=== PATIENT | female | born 1980 | race Caucasian/White ===

== ENCOUNTER 2023-05-19 08:22 | Outpatient (AMB) | payer OTHER, SELFPAY ==
[2023-05-19 08:47] VITALS: BP 120/82; PULSE 85; O2SAT 98; BMI 43.4
--- NOTE | 2023-05-19 08:47 | MHC.PC.OV ---
Vital Signs 05/19/23 08:47 Height 5 ft 3 in Weight 245 lb 2 oz BMI 43.4 BP 120/82 Blood Pressure Location Lt brachial Position Sitting Pulse 85 Pulse Source Pulse Oximeter Pulse Oximetry (%) 98 Oxygen Delivery Method Room Air Intake Visit Reasons: Increased Parathyroid Intake Note: Py is here for parathyroid F/U. Hyperbaric Tech Required: No Accompanied by: Self / Same As Patient Allergies acetaminophen [From Percocet] Allergy (Unknown, Verified 05/19/23 09:14) vomitting amoxicillin Allergy (Unknown, Verified 05/19/23 09:14) hives hydrocodone [From Vicodin] Allergy (Unknown, Verified 05/19/23 09:14) hives Penicillins Allergy (Unknown, Verified 05/19/23 09:14) hives gemfibrozil Adverse Reaction (Intermediate, Verified 05/19/23 09:25) Palpitations oxycodone Adverse Reaction (Unknown, Verified 05/19/23 09:14) Vomiting Medication List - Last Reconciled 05/19/23 by Louis Eller PA-C diclofenac sodium 50 mg PO TID PRN folic acid 1 mg PO DAILY leflunomide 20 mg PO DAILY lisinopril 10 mg PO DAILY 90 days omeprazole 20 mg PO QAM sertraline 50 mg PO DAILY Tobacco use date assessed: 05/19/23 Dental Screening Dental Screen Date: 05/19/23 Did you have a dental visit in the last 12 months?: No Did you have a dental problem in the last 6 months where you did not have access to dental care?: No Was dental information given to patient?: Patient has dentist HPI Increased Parathyroid HPI Details Patient is a 42-year-old female here today for follow-up visit. Patient has not been seen quite a while here the PCP office. Patient has a past medical history significant for hypertension, obesity, rheumatoid arthritis, anxiety. Recently found to have recurrent episodes of nephrolithiasis by her urologist, noted to have elevated parathyroid hormone at 85. Advised to have PCP refer her to endocrinology due to her elevated parathyroid. .. Concern--> reports having left-sided sciatic pain last several months worse with sitting or standing for long periods of time. She is willing to do physical therapy and get x-rays left hip in lumbar spine. .. Looking for new Hyperlipidemia: Has tried gemfibrozil in the past though had side effects of palpitations and discontinued this medication. Continue to work on lifestyle modifications. .. Rheumatoid arthritis: Has lost follow-up with her with her ingot buggy operator as they have left practice. Is able to manage her pain with NSAID as needed.. She will be looking for a new ingot buggy operator in near future. .. Hypertension: Blood pressure acceptable today in office. Continues on lisinopril 10 mg with good effect on her blood pressure. [facility] Medical History (Updated 05/20/23 @ 07:29 by Louis Eller PA-C) COVID-19 virus infection GERD without esophagitis Panic disorder Surgical History H/O right knee surgery History of carpal tunnel release History of section History of extraction of renal calculus History of laparoscopy History of surgery History of tonsillectomy Family History Father Diabetes Sleep apnea Pulmonary fibrosis Mother Diabetes Obesity Osteoarthritis Hypercholesteremia Social History Housing: House Alcohol intake: current Alcohol intake frequency: holidays/special occasions only Alcohol type: beer, wine and hard liquor Patient Tobacco Use Status: Never used Tobacco e-Cigarette/Vaping Use: Never Used service: No Current occupational status: employed 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 1. Little interest or pleasure in doing things: not at all 2. Feeling down, depressed, or hopeless: not at all 3. Trouble falling or staying asleep, or sleeping too much: not at all 4. Feeling tired or having little energy: not at all 5. Poor appetite or overeating: not at all 6. Feeling bad about yourself - or that you are a failure or have let yourself or your family down: not at all 7. Trouble concentrating on things, such as reading the newspaper or watching television: not at all 8. Moving or speaking so slowly that other people could have noticed. Or the opposite - being so fidgety or restless that you have been moving around a lot more than usual: not at all 9. Thoughts that you would be better off or of hurting yourself in some way: not at all Total score: 0 Depression Screening Interpretation: Negative 13479 - PHQ-9 Billing: Yes Source: Developed by Drs. Parker Moran, Olive Fiore, Carmelo Simmons and colleagues, with an educational ashley from [employer]. Thrive Questionnaire Date Thrive assessed: 05/19/23 I am a: Patient What is your living situation today?: I have a steady place to live Within the past 12 months, did the food you bought not last and you didn't have the money to get more?: Never true Within the past 12 months, did you worry whether your food would run out before you got money to buy more?: Never true Do you have trouble paying for medicines?: No Do you have trouble getting transportation to medical appointments?: No Do you have trouble paying your heating and electricity bill?: No Do you have trouble taking care of your child, family member or friend?: No Do you have trouble with day-to-day activities such as bathing, preparing meals, shopping, managing finances, etc.?: No Are you currently unemployed and looking for a job?: No Are you interested in more education?: No Currently or been in a relationship where the following occur: no concerns reported AUDIT C Alcohol Use Questionnaire (AUDIT-C) 1. How often do you have a drink containing alcohol?: Monthly or less 2. How many drinks containing alcohol do you have on a typical day when you are drinking?: 1 or 2 3. How often do you have six or more drinks on one occasion?: Never Total Score: 1 PATY-7 AMB Questionnaire PATY-7 Date PATY - 7 assessed: 05/19/23 Feeling nervous, anxious, or on edge: 0 = Not at all Not being able to stop or control worryin = Not at all Worrying too much about different things: 0 = Not at all Trouble relaxin = Not at all Being so restless that it is hard to sit still: 0 = Not at all Becoming easily annoyed or irritable: 0 = Not at all Feeling afraid as if something awful might happen: 0 = Not at all Total PATY-7 score (0-4 normal; 5-9 mild; 10-14 moderate; 15-21 severe): 0 Source: Developed by Drs. Parker Moran, Olive Fiore, Carmelo Simmons and colleagues, with an educational ashley from [employer]. PATY-7 Assessment Billing PATY-7 Assessment Tool: PATY-7 Assessment 80118 Review of Systems Const Denies headache(s) Eyes Denies loss of vision ENT Denies vertigo, Denies dizziness, Denies headache(s) and Denies sore throat Card Denies chest pain, Denies leg edema and Denies lightheadedness Resp Denies cough, Denies hemoptysis and Denies wheezing GI Denies abdominal pain, Denies melena, Denies constipation, Denies diarrhea and Denies vomiting Denies urinary frequency, Denies dysuria and Denies urinary urgency Musc Reports back pain, Denies arthralgias, Denies joint swelling, Denies numbness and Denies tingling Neuro Denies Abnormal speech present, Denies behavioral changes, Denies vertigo, Denies dizziness, Denies headache(s), Denies loss of vision, Denies memory loss, Denies numbness and Denies tingling Psych Denies anxiety, Denies behavioral changes, Denies depression, Denies memory loss and Denies panic attacks Cory/Lymph Denies easy bleeding and Denies easy bruising Aller/Immun Denies wheezing Physical exam (Primary Care) Vital Signs: Last Vital Signs Pulse 85 05/19/23 08:47 BP 120/82 05/19/23 08:47 Pulse Ox 98 05/19/23 08:47 Oxygen Delivery Method Room Air 05/19/23 08:47 BMI result Body Mass Index 43.4 BMI Assessment/Plan discussion: High Tobacco/Smoking Status: Tobacco use Status Tobacco use date assessed 05/19/23 05/19/23 08:53 Patient Tobacco Use Status Never used Tobacco 05/19/23 08:53 e-Cigarette/Vaping Use Never Used 05/19/23 08:53 PHQ-9: PHQ-9 Score PHQ-9: Total score 0 05/19/23 09:16 Depression Screening Interpretation: Negative Thrive Assessment: Date of Thrive Assessment Date Thrive assessed 05/19/23 05/19/23 08:53 Currently or been in a relationship where the following occur: no concerns reported Const Other: OBESE General: healthy appearing, no acute distress, alert and awake Nutritional Appearance: well nourished Orientation/consciousness: oriented to person, oriented to place and oriented to time HENMT Ears: TM's normal bilaterally General nose exam: Normal nasal mucous membranes and turbinates present Eyes Conjunctivae: conjunctivae normal Sclerae: sclerae normal Pupils: Equal, round and reactive pupils present Neck Neck: Yes no lymphadenopathy and Yes no JVD Thyroid: Thyroid normal Carotids: no bruits Resp Effort & Inspection: normal respiratory effort and not tachypneic Auscultation: no crackles, no rales, no rhonchi and no wheezes Cardio Rate: regular rate Rhythm: regular rhythm Heart sounds: no murmurs and normal S1 and S2 GI Palpation (GI): Soft to palpation, nontender, no hepatomegaly and no splenomegaly Auscultation: normal bowel sounds Skin General skin exam: no rashes or lesions noted and dry skin Neuro General: oriented to person, oriented to place and oriented to time Cranial nerves: Yes Equal, round and reactive pupils present Speech: No Abnormal speech present Gait exam (Neuro): Normal gait present Motor exam (neuro): no tremor noted Extrem Right upper extremity: full ROM Left upper extremity: full ROM Right lower extremity: full ROM; no edema Left lower extremity: full ROM; no edema Psych Mental Status: mental status grossly normal Speech and movement: Normal speech and movement present Affect: normal affect Attitude: cooperative Thought process: Normal thought process present Assessment and Plan Assessment & Plan (1) Hyperparathyroidism: Code(s): E21.3 - Hyperparathyroidism, unspecified Plan: Patient was found to have elevated parathyroid hormone though normal calcium. In the setting of recurrent nephrolithiasis was advised to see an cut file clerk. Will refer to endocrinology. (2) Nephrolithiasis: Code(s): N20.0 - Calculus of kidney Plan: Patient followed by Urology and is under surveillance for her nephrolithiasis. Was found to elevated parathyroid hormone though normal calcium. (3) Left hip pain: Code(s): M25.552 - Pain in left hip Plan: Has rheumatoid arthritis and does report having left hip pain. Will get x-ray to evaluate for any erosive arthritis of the left hip. (4) Lumbar spine pain: Code(s): M54.50 - Low back pain, unspecified Plan: Patient does report signs and symptoms of left-sided sciatica, will likely benefit from formal physical therapy and patient agrees. (5) Borderline high cholesterol: Code(s): E78.9 - Disorder of lipoprotein metabolism, unspecified Plan: Patient has a history of borderline high total cholesterol. Has tried gemfibrozil in the past for triglycerides though had side effects from this medication. She will continue working on lifestyle modifications and reducing high cholesterol foods in her diet. (6) Obese: Code(s): E66.9 - Obesity, unspecified Qualifiers: Obesity type: due to excess calories Obesity classification: adult class 3 (BMI >= 40) Serious obesity comorbidity presence: with serious comorbidity Body mass index: BMI 40.0-44.9 Qualified Code(s): E66.01 - Morbid (severe) obesity due to excess calories; Z68.41 - Body mass index [BMI] 40.0-44.9, adult Plan: Patient does understand her BMI is over 40 will work on trying to be more physically active and adapting to better eating habits to reduce her weight (7) HTN (hypertension): Code(s): I10 - Essential (primary) hypertension Qualifiers: Hypertension type: essential hypertension Qualified Code(s): I10 - Essential (primary) hypertension (8) Hypertriglyceridemia: Code(s): E78.1 - Pure hyperglyceridemia (9) Rheumatoid arthritis: Code(s): M06.9 - Rheumatoid arthritis, unspecified Qualifiers: Rheumatoid arthritis location: knee Rheumatoid factor presence: unspecified presence Laterality: right Qualified Code(s): M06.9 - Rheumatoid arthritis, unspecified Plan: Continues to manage her RA pain with NSAIDs as needed. Has lost her follow-up with Rheumatology and looks to find a new ingot buggy operator in near future. Orders: Orders XR hip LT min 2V 05/19/23 M25.552 - Pain in left hip XR lumbar spine 2-3V 05/19/23 M54.50 - Low back pain, unspecified PT Evaluation and Treatment 05/19/23 M54.50 - Low back pain, unspecified Lipid Panel 05/19/23 E78.9 - Disorder of lipoprotein metabolism, unspecified TSH reflex Free T4 05/19/23 E78.9 - Disorder of lipoprotein metabolism, unspecified Referrals Endocrinology Referral E21.3 - Hyperparathyroidism, unspecified Coding Level of Care Code Est Pt Level 4 (84399) Diagnoses Hyperparathyroidism E21.3 Nephrolithiasis N20.0 Left hip pain M25.552 Lumbar spine pain M54.50 Borderline high cholesterol E78.9 Obese E66.01; Z68.41 Obesity type: due to excess calories Obesity classification: adult class 3 (BMI >= 40) Serious obesity comorbidity presence: with serious comorbidity Body mass index: BMI 40.0-44.9 HTN (hypertension) I10 Hypertension type: essential hypertension Hypertriglyceridemia E78.1 Rheumatoid arthritis M06.9 Rheumatoid arthritis location: knee Rheumatoid factor presence: unspecified presence Laterality: right Additional Codes PATY-7 Assessment Billing - PATY-7 Assessment Tool: PATY-7 Assessment [id number] ([id number])
== END 2023-05-19 09:37 | disposition home or self-care (01) ==
PROVIDERS: PCP Physician Assistant; Visit Provider Physician Assistant
DX: I10 Essential (primary) hypertension (principal); E21.3 Hyperparathyroidism, unspecified; Z68.41 Body mass index [BMI] 40.0-44.9, adult; E66.01 Morbid (severe) obesity due to excess calories; M06.9 Rheumatoid arthritis, unspecified; N20.0 Calculus of kidney; M25.552 Pain in left hip; M54.50 Low back pain, unspecified; E78.9 Disorder of lipoprotein metabolism, unspecified; E78.1 Pure hyperglyceridemia
CPT/HCPCS: 99214

== ENCOUNTER 2023-08-26 08:47 | Outpatient (AMB) | payer OTHER, SELFPAY ==
[2023-08-26 08:52] VITALS: BP 128/78; PULSE 84; O2SAT 98; BMI 42.2
--- NOTE | 2023-08-26 08:52 | A.OFFPC_ITS ---
Vital Signs 08/26/23 08:52 Height 5 ft 3 in Weight 238 lb BMI 42.2 BP 128/78 Blood Pressure Location Lt brachial Position Sitting Pulse 84 Pulse Source Pulse Oximeter Pulse Oximetry (%) 98 Oxygen Delivery Method Room Air Intake Visit Reasons: PE Heater Tender Required: No Accompanied by: Self / Same As Patient Is last menstrual period known: Yes Last menstrual period: 07/07/23 Allergies acetaminophen [From Percocet] Allergy (Unknown, Verified 08/26/23 09:48) vomitting amoxicillin Allergy (Unknown, Verified 08/26/23 09:48) hives hydrocodone [From Vicodin] Allergy (Unknown, Verified 08/26/23 09:48) hives Penicillins Allergy (Unknown, Verified 08/26/23 09:48) hives gemfibrozil Adverse Reaction (Intermediate, Verified 08/26/23 09:48) Palpitations oxycodone Adverse Reaction (Unknown, Verified 08/26/23 09:48) Vomiting Medication List - Last Reconciled 08/26/23 by Louis Eller PA-C cholecalciferol (vitamin D3) 25 mcg PO DAILY diclofenac sodium 50 mg PO TID PRN folic acid 1 mg PO DAILY leflunomide 20 mg PO DAILY lisinopril 10 mg PO DAILY 90 days omeprazole 20 mg PO QAM sertraline 50 mg PO DAILY Tobacco use date assessed: 05/19/23 Dental Screening Dental Screen Date: 08/26/23 Did you have a dental visit in the last 12 months?: Yes Did you have a dental problem in the last 6 months where you did not have access to dental care?: No Was dental information given to patient?: Patient has dentist HPI PE HPI Details Patient is a 43-year-old female here today for annual physical. Patient has not been seen quite a while here the PCP office. Patient has a past medical history significant for hypertension, obesity, rheumatoid arthritis, anxiety. .. Concern--> reports having left-sided sciatic pain last several months worse with sitting or standing for long periods of time. She is willing to do physical therapy and get x-rays left hip in lumbar spine. .. Hyperparathyroidism: Has follow-up with [facility] and has been placed on vitamin-D supplementation. .. Hyperlipidemia: Has tried gemfibrozil in the past though had side effects of palpitations and discontinued this medication. She admits to dietary indiscretion. Most recent lipid panel showing triglycerides to be more elevated. PLAN: She is willing to try fenofibrate also Continue to work on lifestyle modifications. .. Rheumatoid arthritis: Has lost follow-up with her with her solar energy systems engineer as they have left practice. Is able to manage her pain with NSAID as needed.. She will be looking for a new solar energy systems engineer in near future. .. Hypertension: Blood pressure acceptable today in office. Continues on lisinopril 10 mg with good effect on her blood pressure. Colon cancer screening: willing to do colonoscopy. mammo: Done May 2023 normal Vaccines: Up-to-date with flu vaccine, COVID vaccine pneumonia vaccine, needs tetanus vaccine, PFSH Medical History COVID-19 virus infection Panic disorder GERD without esophagitis Surgical History History of surgery History of extraction of renal calculus History of laparoscopy History of section History of carpal tunnel release H/O right knee surgery History of tonsillectomy Family History Father Diabetes Sleep apnea Pulmonary fibrosis Mother Diabetes Obesity Osteoarthritis Hypercholesteremia Social History Housing: House Alcohol intake: current Alcohol intake frequency: holidays/special occasions only Alcohol type: beer, wine and hard liquor Patient Tobacco Use Status: Never used Tobacco e-Cigarette/Vaping Use: Never Used service: No Current occupational status: employed 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 Parker Moran, Olive Fiore, Carmelo Simmons and colleagues, with an educational ashley from [employer]. Review of Systems Const Denies body aches, Denies chills, Denies excessive sweating, Denies fatigue, Denies fever(s) and Denies headache(s) Eyes Denies blurry vision ENT Denies dysphagia, Denies vertigo, Denies dizziness, Denies headache(s), Denies hearing loss and Denies tinnitus Card Denies chest pain, Denies chest pain with activity, Denies syncope, Denies irregular heart rhythm and Denies dyspnea Resp Denies chest congestion, Denies cough, Denies hemoptysis, Denies dyspnea and Denies wheezing GI Denies abdominal pain, Denies melena, Denies hematochezia, Denies coffee ground emesis, Denies dysphagia, Denies diarrhea, Denies nausea and Denies vomiting Denies urinary frequency, Denies dysuria, Denies urinary hesitancy and Denies urinary urgency Musc Denies arthralgias, Denies limited range of motion, Denies muscle cramps and Denies muscle weakness Skin/Breast Denies rash and Denies skin ulcer Neuro Denies Abnormal speech present, Denies confusion, Denies vertigo, Denies dizziness, Denies syncope, Denies headache(s), Denies memory loss and Denies seizure-like activity Psych Denies anxiety, Denies confusion, Denies depression, Denies memory loss, Denies panic attacks and Denies paranoia Endo Denies excessive sweating, Denies fatigue, Denies flushing, Denies polydipsia and Denies polyuria Aller/Immun Denies wheezing Physical exam (Primary Care) Vital Signs: Last Vital Signs Pulse 84 08/26/23 08:52 BP 128/78 08/26/23 08:52 Pulse Ox 98 08/26/23 08:52 Oxygen Delivery Method Room Air 08/26/23 08:52 BMI result Body Mass Index 42.2 BMI Assessment/Plan discussion: High Tobacco/Smoking Status: Tobacco use Status Tobacco use date assessed 05/19/23 08/26/23 08:53 Patient Tobacco Use Status Never used Tobacco 08/26/23 08:53 e-Cigarette/Vaping Use Never Used 08/26/23 08:53 Thrive Assessment: Date of Thrive Assessment Date Thrive assessed 05/19/23 08/26/23 08:53 Const Other: Obese General: cooperative, comfortable, no acute distress, alert and awake; No confusion Orientation/consciousness: oriented to person, oriented to place, patient oriented x3 and No confusion HENMT Head: Yes normocephalic Ears: external ears normal and TM's normal bilaterally Face and sinus: No sinus tenderness Mouth: Normal oral and palatal mucosa present and tongue normal Teeth and gingiva: dentition normal and gingiva normal Throat: Yes posterior oropharynx normal, Yes tonsils normal and Yes uvula midline Eyes Conjunctivae: conjunctivae normal Sclerae: sclerae normal Pupils: Equal, round and reactive pupils present EOM: EOMs intact bilaterally Direct Ophthalmoscopy: No no photophobia Neck Neck: Yes no lymphadenopathy, No tender and Yes no JVD Thyroid: Thyroid normal Carotids: no bruits Chest Chest palpation & inspection: no tenderness Resp Effort & Inspection: normal respiratory effort, no audible wheezes, not labored and no stridor Auscultation: no crackles, no rales, no rhonchi and no wheezes Cardio Jugular venous distension: no JVD Rate: regular rate, not bradycardic and not tachycardic Rhythm: regular rhythm Bruits: no carotid bruits Peripheral pulses: Peripheral pulses 2+ throughout GI Inspection: Yes normal to inspection, No abdominal wall ecchymosis and No visible herniation Palpation (GI): Soft to palpation, nontender, no guarding, not rigid and No hepatosplenomegaly present Auscultation: normoactive bowel sounds General: Yes no CVA tenderness Back/Spine/Pelvis Back: no CVA tenderness and No back tenderness Cervical Spine: cervical ROM normal Thoracic/Lumbar Spine: thoracic and lumbar spine normal to inspection, straight leg raise negative bilaterally, No thoraco-lumbar ROM limited and No lumbar spinal tenderness Skin Lesions: no lesions Rashes: no rashes Wounds: no wounds Neuro General: oriented to person, oriented to place, patient oriented x3, CN's II-XI intact bilaterally and No confusion Cranial nerves: Yes Equal, round and reactive pupils present and Yes Normal accommodation reflex present Cognition (Neuro): normal cognition Speech: No Abnormal speech present Gait exam (Neuro): Normal gait present Motor exam (neuro): 5/5 motor strength present throughout Extrem Right upper extremity: full ROM; no cyanosis Left upper extremity: full ROM; no cyanosis Right lower extremity: no edema Left lower extremity: no edema Psych Appearance: grossly normal Mental Status: mental status grossly normal Affect: normal affect Attitude: cooperative Thought process: Normal thought process present Assessment and Plan Assessment & Plan (1) Annual physical exam: Code(s): Z00.00 - Encounter for general adult medical examination without abnormal findings (2) Hyperparathyroidism: Code(s): E21.3 - Hyperparathyroidism, unspecified Plan: Has been established with [facility]. Has been placed on vitamin-D supplementation. (3) Nephrolithiasis: Code(s): N20.0 - Calculus of kidney Plan: Patient followed by Urology and is under surveillance for her nephrolithiasis. Was found to elevated parathyroid hormone though normal calcium. (4) Obese: Code(s): E66.9 - Obesity, unspecified Qualifiers: Body mass index: BMI 40.0-44.9 Obesity classification: adult class 3 (BMI >= 40) Obesity type: due to excess calories Serious obesity comorbidity presence: with serious comorbidity Qualified Code(s): E66.01 - Morbid (severe) obesity due to excess calories; Z68.41 - Body mass index [BMI] 40.0-44.9, adult Plan: Patient does understand her BMI is over 40 will work on trying to be more physically active and adapting to better eating habits to reduce her weight (5) HTN (hypertension): Code(s): I10 - Essential (primary) hypertension Qualifiers: Hypertension type: essential hypertension Qualified Code(s): I10 - Essential (primary) hypertension Plan: Patient's blood pressure acceptable today in office. Will continue her current dose of lisinopril with goal for pressure to remain below 140/90 (6) Hypertriglyceridemia: Code(s): E78.1 - Pure hyperglyceridemia Plan: Patient's most recent fasting lipid panel showing elevated triglycerides. Has been unable to tolerate gemfibrozil. She is willing to try fenofibrate. She will continue on lifestyle modifications on reducing her high cholesterol foods. Goal triglycerides to be below 200. Orders: Orders TSH reflex Free T4 08/26/23 E21.3 - Hyperparathyroidism, unspecified Lipid Panel 08/26/23 E78.1 - Pure hyperglyceridemia Microalbumin, Random (w Creat) 08/26/23 I10 - Essential (primary) hypertension Comprehensive [place]. Panel Fast 08/26/23 I10 - Essential (primary) hypertension Complete Blood Count no Diff 08/26/23 I10 - Essential (primary) hypertension Medications: New fenofibrate 54 mg PO DAILY 90 days 90 tabs 1RF E78.1 - Pure hyperglyceridemia fenofibrate 54 mg PO DAILY 90 days 90 tabs 1RF E78.1 - Pure hyperglyceridemia lorazepam 0.5 mg PO DAILY 5 days PRN 5 tabs 0RF anxiety F41.0 - Panic disorder [episodic paroxysmal anxiety] Coding Level of Care Code Est Pt Level 4 (55043) Diagnoses Annual physical exam Z00.00 Hyperparathyroidism E21.3 Nephrolithiasis N20.0 Class 3 severe obesity due to excess calories with serious comorbidity and body mass index (BMI) of 40.0 to 44.9 in adult E66.01; Z68.41 Body mass index: BMI 40.0-44.9 Obesity classification: adult class 3 (BMI >= 40) Obesity type: due to excess calories Serious obesity comorbidity presence: with serious comorbidity Essential hypertension I10 Hypertension type: essential hypertension Hypertriglyceridemia E78.1
== END 2023-08-26 10:07 | disposition home or self-care (01) ==
PROVIDERS: PCP Physician Assistant; Visit Provider Physician Assistant
DX: Z00.00 Encounter for general adult medical examination without abnormal findings (principal); E21.3 Hyperparathyroidism, unspecified; E66.01 Morbid (severe) obesity due to excess calories; Z68.41 Body mass index [BMI] 40.0-44.9, adult; N20.0 Calculus of kidney; I10 Essential (primary) hypertension; E78.1 Pure hyperglyceridemia
CPT/HCPCS: 99396

== ENCOUNTER 2023-12-06 14:28 | Outpatient (AMB) | payer OTHER, SELFPAY ==
[2023-12-06 14:42] VITALS: BP 130/78; PULSE 85; O2SAT 97; BMI 42.5
--- NOTE | 2023-12-06 14:42 | A.OFFPC_ITS ---
Vital Signs 12/06/23 14:42 Height 5 ft 3 in Weight 240 lb BMI 42.5 BP 130/78 Blood Pressure Location Lt brachial Position Sitting Pulse 85 Pulse Source Pulse Oximeter Pulse Oximetry (%) 97 Oxygen Delivery Method Room Air Intake Visit Reasons: Red rash on her Face and neck Intake Note: The patient is present with a hot, red, warm, and itchy rash on the face persisting for the past 5 days and spreading down to the neck. 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 Required: No Accompanied by: Self / Same As Patient Allergies acetaminophen [From Percocet] Allergy (Unknown, Verified 12/06/23 14:52) vomitting amoxicillin Allergy (Unknown, Verified 12/06/23 14:52) hives hydrocodone [From Vicodin] Allergy (Unknown, Verified 12/06/23 14:52) hives Penicillins Allergy (Unknown, Verified 12/06/23 14:52) hives gemfibrozil Adverse Reaction (Intermediate, Verified 12/06/23 14:52) Palpitations oxycodone Adverse Reaction (Unknown, Verified 12/06/23 14:52) Vomiting Medication List - Last Reconciled 12/06/23 by Louis Eller PA-C cholecalciferol (vitamin D3) 25 mcg PO DAILY diclofenac sodium 50 mg PO TID PRN fenofibrate 54 mg PO DAILY 90 days folic acid 1 mg PO DAILY leflunomide 20 mg PO DAILY lisinopril 10 mg PO DAILY 90 days lorazepam 0.5 mg PO DAILY PRN 5 days omeprazole 20 mg PO QAM sertraline 50 mg PO DAILY Tobacco use date assessed: 12/06/23 Dental Screening Dental Screen Date: 12/06/23 Did you have a dental visit in the last 12 months?: Yes Did you have a dental problem in the last 6 months where you did not have access to dental care?: No Was dental information given to patient?: Patient has dentist HPI Red rash on her Face and neck HPI Details Patient is a 43-year-old female here today for problem visit. She reports over the last 5 days developing a rash on her face and neck.. She has started taking Benadryl though has not been effective.. She otherwise denies any upper respiratory symptoms or issues with swallowing.. She can not recall any new medications, soaps, detergents, facial creams [facility] Medical History COVID-19 virus infection Panic disorder GERD without esophagitis Surgical History History of surgery History of extraction of renal calculus History of laparoscopy History of section History of carpal tunnel release H/O right knee surgery History of tonsillectomy Family History Father Diabetes Sleep apnea Pulmonary fibrosis Mother Diabetes Obesity Osteoarthritis Hypercholesteremia Social History Housing: House Alcohol intake: current Alcohol intake frequency: holidays/special occasions only Alcohol type: beer, wine and hard liquor Patient Tobacco Use Status: Never used Tobacco e-Cigarette/Vaping Use: Never Used service: No Current occupational status: employed 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 1. Little interest or pleasure in doing things: not at all 2. Feeling down, depressed, or hopeless: not at all 3. Trouble falling or staying asleep, or sleeping too much: not at all 4. Feeling tired or having little energy: not at all 5. Poor appetite or overeating: not at all 6. Feeling bad about yourself - or that you are a failure or have let yourself or your family down: not at all 7. Trouble concentrating on things, such as reading the newspaper or watching television: not at all 8. Moving or speaking so slowly that other people could have noticed. Or the opposite - being so fidgety or restless that you have been moving around a lot more than usual: not at all 9. Thoughts that you would be better off or of hurting yourself in some way: not at all Total score: 0 Depression Screening Interpretation: Negative Depression Screening Done: Yes 27679 - PHQ-9 Billing: Yes Source: Developed by Drs. Parker Moran, Olive Fiore, Carmelo Simmons and colleagues, with an educational ashley from [employer]. Thrive Questionnaire Date Thrive assessed: 12/06/23 I am a: Patient What is your living situation today?: I have a steady place to live Within the past 12 months, did the food you bought not last and you didn't have the money to get more?: Never true Within the past 12 months, did you worry whether your food would run out before you got money to buy more?: Never true Do you have trouble paying for medicines?: No Do you have trouble getting transportation to medical appointments?: No Do you have trouble paying your heating and electricity bill?: No Do you have trouble taking care of your child, family member or friend?: No Do you have trouble with day-to-day activities such as bathing, preparing meals, shopping, managing finances, etc.?: No Are you currently unemployed and looking for a job?: No Are you interested in more education?: No Please select the resources that you would like help with: None Currently or been in a relationship where the following occur: no concerns reported THRIVE Score: 0 AUDIT C Alcohol Use Questionnaire (AUDIT-C) 1. How often do you have a drink containing alcohol?: Monthly or less 2. How many drinks containing alcohol do you have on a typical day when you are drinking?: 1 or 2 3. How often do you have six or more drinks on one occasion?: Never Total Score: 1 PATY-7 AMB Questionnaire PATY-7 Date PATY - 7 assessed: 12/06/23 Feeling nervous, anxious, or on edge: 0 = Not at all Not being able to stop or control worryin = Not at all Worrying too much about different things: 0 = Not at all Trouble relaxin = Not at all Being so restless that it is hard to sit still: 0 = Not at all Becoming easily annoyed or irritable: 0 = Not at all Feeling afraid as if something awful might happen: 0 = Not at all Total PATY-7 score (0-4 normal; 5-9 mild; 10-14 moderate; 15-21 severe): 0 Source: Developed by Drs. Parker Moran, Olive Fiore, Carmelo Simmons and colleagues, with an educational ashley from [employer]. PATY-7 Assessment Billing PATY-7 Assessment Tool: PATY-7 Assessment 06690 Review of Systems Const Denies headache(s) Eyes Denies loss of vision ENT Denies vertigo, Denies dizziness, Denies headache(s) and Denies sore throat Card Denies chest pain, Denies leg edema and Denies lightheadedness Resp Denies cough, Denies hemoptysis and Denies wheezing GI Denies abdominal pain, Denies melena, Denies constipation, Denies diarrhea and Denies vomiting Denies urinary frequency, Denies dysuria and Denies urinary urgency Musc Denies arthralgias, Denies joint swelling, Denies numbness and Denies tingling Neuro Denies Abnormal speech present, Denies behavioral changes, Denies vertigo, Denies dizziness, Denies headache(s), Denies loss of vision, Denies memory loss, Denies numbness and Denies tingling Psych Denies anxiety, Denies behavioral changes, Denies depression, Denies memory loss and Denies panic attacks Cory/Lymph Denies easy bleeding and Denies easy bruising Aller/Immun Denies wheezing Physical exam (Primary Care) Vital Signs: Last Vital Signs Pulse 85 12/06/23 14:42 BP 130/78 12/06/23 14:42 Pulse Ox 97 12/06/23 14:42 Oxygen Delivery Method Room Air 12/06/23 14:42 BMI result Body Mass Index 42.5 Tobacco/Smoking Status: Tobacco use Status Tobacco use date assessed 12/06/23 12/06/23 14:47 Patient Tobacco Use Status Never used Tobacco 12/06/23 14:47 e-Cigarette/Vaping Use Never Used 12/06/23 14:47 PHQ-9: PHQ-9 Score PHQ-9: Total score 0 12/06/23 14:47 Depression Screening Interpretation: Negative Thrive Assessment: Date of Thrive Assessment Date Thrive assessed 12/06/23 12/06/23 14:47 Currently or been in a relationship where the following occur: no concerns reported Const General: healthy appearing, no acute distress, alert and awake Nutritional Appearance: well nourished Orientation/consciousness: oriented to person, oriented to place and oriented to time HENMT Other: NOTED RED FLUSHED SKIN OVER CHEEKS FOREHEAD. Ears: TM's normal bilaterally General nose exam: Normal nasal mucous membranes and turbinates present Eyes Conjunctivae: conjunctivae normal Sclerae: sclerae normal Pupils: Equal, round and reactive pupils present Neck Neck: Yes no lymphadenopathy and Yes no JVD Thyroid: Thyroid normal Carotids: no bruits Resp Effort & Inspection: normal respiratory effort and not tachypneic Auscultation: no crackles, no rales, no rhonchi and no wheezes Cardio Rate: regular rate Rhythm: regular rhythm Heart sounds: no murmurs and normal S1 and S2 GI Palpation (GI): Soft to palpation, nontender, no hepatomegaly and no splenomegaly Auscultation: normal bowel sounds Skin Other: ERYTHEMATOUS RASH NOTED OVER FOREHEAD, CHEEKS, CHIN AND RIGHT-SIDED NECK. Neuro General: oriented to person, oriented to place and oriented to time Cranial nerves: Yes Equal, round and reactive pupils present Speech: No Abnormal speech present Gait exam (Neuro): Normal gait present Motor exam (neuro): no tremor noted Extrem Right upper extremity: full ROM Left upper extremity: full ROM Right lower extremity: full ROM; no edema Left lower extremity: full ROM; no edema Psych Mental Status: mental status grossly normal Speech and movement: Normal speech and movement present Affect: normal affect Attitude: cooperative Thought process: Normal thought process present Assessment and Plan Assessment & Plan (1) Dermatitis: Code(s): L30.9 - Dermatitis, unspecified Medications: New prednisone Take 3 tablets x3 days, 2 tablets x3 days, 1 tablet x3 days 10 mg PO DIRECTED 9 days 18 tabs 0RF L30.9 - Dermatitis, unspecified desonide 0.05% 1 appl topical DAILY 15 days 15 grams 0RF L30.9 - Dermatitis, unspecified Coding Level of Care Code Est Pt Level 3 (49555) Diagnoses Dermatitis L30.9 Additional Codes PATY-7 Assessment Billing - PATY-7 Assessment Tool: PATY-7 Assessment 31186 ([id number])
== END 2023-12-06 15:06 | disposition home or self-care (01) ==
PROVIDERS: PCP Physician Assistant; Visit Provider Physician Assistant
DX: L30.9 Dermatitis, unspecified (principal)
CPT/HCPCS: 99213

== ENCOUNTER 2024-02-29 08:03 | Outpatient (AMB) | payer OTHER, SELFPAY ==
--- NOTE | 2024-02-29 08:10 | A.OFFPC_ITS ---
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 Accompanied by: Self / Same As Patient Allergies acetaminophen [From Percocet] Allergy (Unknown, Verified 02/29/24 08:26) vomitting amoxicillin Allergy (Unknown, Verified 02/29/24 08:26) hives hydrocodone [From Vicodin] Allergy (Unknown, Verified 02/29/24 08:26) hives Penicillins Allergy (Unknown, Verified 02/29/24 08:26) hives gemfibrozil Adverse Reaction (Intermediate, Verified 02/29/24 08:26) Palpitations oxycodone Adverse Reaction (Unknown, Verified 02/29/24 08:26) Vomiting Medication List - Last Reconciled 02/29/24 by Louis Eller PA-C betamethasone dipropionate 0.05% 1 appl topical BID PRN celecoxib (Celebrex) 100 mg PO DAILY cholecalciferol (vitamin D3) 25 mcg PO DAILY fenofibrate 54 mg PO DAILY 90 days folic acid 1 mg PO DAILY lisinopril 10 mg PO DAILY 90 days lorazepam 0.5 mg PO DAILY PRN 5 days omeprazole 20 mg PO QAM sertraline 50 mg PO DAILY Tobacco use date assessed: 12/06/23 Dental Screening Dental Screen Date: 12/06/23 HPI f/u HLD/ HTN HPI Details Patient is a 43-year-old female here today for follow-up visit . Patient has a past medical history si gnificant for hypertension, obesity, rheumatoid arthritis, anxiety. .. Concern--> recently underwent a right total knee replacement and doing well. She is about 6 weeks out and more physically active. 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 .. Hyperparathyroidism: Has follow-up with [facility] and continues on vitamin-D supplementation. .. Hyperlipidemia: Does have high triglycerides, She continues on fenofibrate without side effect. Has been working on dietary modifications. .. Rheumatoid arthritis: Has lost follow-up with her with her technical writing lead/mgr as they have left practice. Is able to manage her pain with NSAID as needed along with folic acid.. She will be looking for a new technical writing lead/mgr in near future. .. Hypertension: Blood pressure acceptable today in office. Continues on lisinopril 10 mg with good effect on her blood pressure. [facility] Medical History (Updated 02/29/24 @ 08:41 by Louis Eller PA-C) COVID-19 virus infection Panic disorder GERD without esophagitis Surgical History (Updated 02/29/24 @ 08:16 by J CARLOS Turk) History of total knee replacement History of surgery History of extraction of renal calculus History of laparoscopy History of section History of carpal tunnel release H/O right knee surgery History of tonsillectomy Family History (Updated 02/29/24 @ 08:17 by J CARLOS Turk) Father Diabetes Sleep apnea Pulmonary fibrosis Mother Diabetes Obesity Osteoarthritis Hypercholesteremia Family/Other Substance use disorder Mental health disorder Social History Housing: House Alcohol intake: current Alcohol intake frequency: holidays/special occasions only Alcohol type: beer, wine and hard liquor Patient Tobacco Use Status: Never used Tobacco e-Cigarette/Vaping Use: Never Used Second Hand Smoke Exposure: No service: No Current occupational status: employed 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 Parker Moran, Olive Fiore, Carmelo Simmons and colleagues, with an educational ashley from [employer]. Review of Systems Const Denies headache(s) Eyes Denies loss of vision ENT Denies vertigo, Denies dizziness, Denies headache(s) and Denies sore throat Card Denies chest pain, Denies leg edema and Denies lightheadedness Resp Denies cough, Denies hemoptysis and Denies wheezing GI Denies abdominal pain, Denies melena, Denies constipation, Denies diarrhea and Denies vomiting Denies urinary frequency, Denies dysuria and Denies urinary urgency Musc Denies arthralgias, Denies joint swelling, Denies numbness and Denies tingling Neuro Denies Abnormal speech present, Denies behavioral changes, Denies vertigo, Denies dizziness, Denies headache(s), Denies loss of vision, Denies memory loss, Denies numbness and Denies tingling Psych Denies anxiety, Denies behavioral changes, Denies depression, Denies memory loss and Denies panic attacks Cory/Lymph Denies easy bleeding and Denies easy bruising Aller/Immun Denies wheezing Physical exam (Primary Care) Vital Signs: Last Vital Signs BP 132/86 02/29/24 08:11 BMI result Body Mass Index 41.1 Tobacco/Smoking Status: Tobacco use Status Tobacco use date assessed 12/06/23 02/29/24 08:18 Patient Tobacco Use Status Never used Tobacco 02/29/24 08:18 e-Cigarette/Vaping Use Never Used 02/29/24 08:18 Thrive Assessment: Date of Thrive Assessment Date Thrive assessed 12/06/23 02/29/24 08:18 Const General: healthy appearing, no acute distress, alert and awake Nutritional Appearance: well nourished Orientation/consciousness: oriented to person, oriented to place and oriented to time HENMT Ears: TM's normal bilaterally General nose exam: Normal nasal mucous membranes and turbinates present Eyes Conjunctivae: conjunctivae normal Sclerae: sclerae normal Pupils: Equal, round and reactive pupils present Neck Neck: Yes no lymphadenopathy and Yes no JVD Thyroid: Thyroid normal Carotids: no bruits Resp Effort & Inspection: normal respiratory effort and not tachypneic Auscultation: no crackles, no rales, no rhonchi and no wheezes Cardio Rate: regular rate Rhythm: regular rhythm Heart sounds: no murmurs and normal S1 and S2 GI Palpation (GI): Soft to palpation, nontender, no hepatomegaly and no splenomegaly Auscultation: normal bowel sounds Skin General skin exam: no rashes or lesions noted and dry skin Neuro General: oriented to person, oriented to place and oriented to time Cranial nerves: Yes Equal, round and reactive pupils present Speech: No Abnormal speech present Gait exam (Neuro): Normal gait present Motor exam (neuro): no tremor noted Extrem Right upper extremity: full ROM Left upper extremity: full ROM Right lower extremity: full ROM; no edema Left lower extremity: full ROM; no edema Psych Mental Status: mental status grossly normal Speech and movement: Normal speech and movement present Affect: normal affect Attitude: cooperative Thought process: Normal thought process present Assessment and Plan Assessment & Plan (1) Hyperparathyroidism: Code(s): E21.3 - Hyperparathyroidism, unspecified Plan: Has been established with [facility]. She continues on higher dose of vitamin-D supplementation 4000 units. (2) Nephrolithiasis: Code(s): N20.0 - Calculus of kidney Plan: Patient followed by Urology and is under surveillance for her nephrolithiasis. Was found to elevated parathyroid hormone though normal calcium. (3) Obese: Code(s): E66.9 - Obesity, unspecified Qualifiers: Obesity type: due to excess calories Obesity classification: adult class 3 (BMI >= 40) Serious obesity comorbidity presence: with serious comorbidity Body mass index: BMI 40.0-44.9 Qualified Code(s): E66.01 - Morbid (severe) obesity due to excess calories; Z68.41 - Body mass index [BMI] 40.0- 44.9, adult Plan: Has lost a few lb since last office visit.. Recently underwent a total knee replacement.. Patient does understand her BMI is over 40 will work on trying to be more physically active and adapting to better eating habits to reduce her weight (4) HTN (hypertension): Code(s): I10 - Essential (primary) hypertension Qualifiers: Hypertension type: essential hypertension Qualified Code(s): I10 - Essential (primary) hypertension Plan: Patient's blood pressure acceptable today in office. Will continue her current dose of lisinopril with goal for pressure to remain below 140/90 (5) Hypertriglyceridemia: Code(s): E78.1 - Pure hyperglyceridemia Plan: Patient's most recent fasting lipid panel showing elevated triglycerides. Has been unable to tolerate gemfibrozil. Patient continues on fenofibrate. She will continue on lifestyle modifications on reducing her high cholesterol foods. Goal triglycerides to be below 200. (6) Impaired glucose metabolism: Code(s): R73.09 - Other abnormal glucose Plan: Found to have A1c of 5.7 during her preop for her knee replacement. Will continue to follow fasting blood sugar and A1c. She will continue on lifestyle and dietary modifications (7) Psoriasis: Code(s): L40.9 - Psoriasis, unspecified Plan: Recently diagnosed with psoriasis and was started on a topical cream. Followed by Dermatology. Orders: Orders Hemoglobin A1c Today R73.09 - Other abnormal glucose Medications: Changed From folic acid 1 mg PO DAILY M06.9 - Rheumatoid arthritis, unspecified To folic acid 1 mg PO DAILY 90 tabs 1RF 90 days M06.9 - Rheumatoid arthritis, unspecified From lorazepam 0.5 mg PO DAILY PRN 5 tabs 0RF anxiety 5 days F41.0 - Panic disorder [episodic paroxysmal anxiety] To lorazepam 0.5 mg PO DAILY PRN 14 tabs 0RF anxiety 14 days F41.0 - Panic disorder [episodic paroxysmal anxiety] Patient Instructions: Goal: Blood pressure to remain below 140/90 Barriers: Adheres to healthy eating habits and physical activity Coding Level of Care Code Est Pt Level 4 (53798) Diagnoses Hyperparathyroidism E21.3 Nephrolithiasis N20.0 Class 3 severe obesity due to excess calories with serious comorbidity and body mass index (BMI) of 40.0 to 44.9 in adult E66.01; Z68.41 Obesity type: due to excess calories Obesity classification: adult class 3 (BMI >= 40) Serious obesity comorbidity presence: with serious comorbidity Body mass index: BMI 40.0-44.9 Essential hypertension I10 Hypertension type: essential hypertension Hypertriglyceridemia E78.1 Impaired glucose metabolism R73.09 Psoriasis L40.9
[2024-02-29 08:11] VITALS: BP 132/86; BMI 41.1
== END 2024-02-29 08:43 | disposition home or self-care (01) ==
PROVIDERS: PCP Physician Assistant; Visit Provider Physician Assistant
DX: E21.3 Hyperparathyroidism, unspecified (principal); N20.0 Calculus of kidney; E66.01 Morbid (severe) obesity due to excess calories; Z68.41 Body mass index [BMI] 40.0-44.9, adult; I10 Essential (primary) hypertension; E78.1 Pure hyperglyceridemia; R73.09 Other abnormal glucose; L40.9 Psoriasis, unspecified
CPT/HCPCS: 99214

== ENCOUNTER 2024-08-31 07:46 | Outpatient (AMB) | payer OTHER, SELFPAY ==
--- NOTE | 2024-08-31 07:54 | A.OFFPC_ITS ---
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 Required: No Accompanied by: Self / Same As Patient Allergies acetaminophen [From Percocet] Allergy (Unknown, Verified 08/31/24 08:20) vomitting amoxicillin Allergy (Unknown, Verified 08/31/24 08:20) hives hydrocodone [From Vicodin] Allergy (Unknown, Verified 08/31/24 08:20) hives Penicillins Allergy (Unknown, Verified 08/31/24 08:20) hives gemfibrozil Adverse Reaction (Intermediate, Verified 08/31/24 08:20) Palpitations oxycodone Adverse Reaction (Unknown, Verified 08/31/24 08:20) Vomiting Medication List - Last Reconciled 08/31/24 by Louis Eller PA-C betamethasone dipropionate 0.05% 1 appl topical BID PRN cholecalciferol (vitamin D3) 25 mcg PO DAILY fenofibrate 54 mg PO DAILY 90 days folic acid 1 mg PO DAILY 90 days lisinopril 10 mg PO DAILY 90 days lorazepam 0.5 mg PO DAILY PRN 14 days omeprazole 20 mg PO QAM sertraline 50 mg PO DAILY Tobacco use date assessed: 12/06/23 Dental Screening Dental Screen Date: 08/31/24 Did you have a dental visit in the last 12 months?: Yes Did you have a dental problem in the last 6 months where you did not have access to dental care?: No Was dental information given to patient?: Patient has dentist HPI Annual Exam HPI Details Patient is a 43-year-old female here today for follow-up visit . Patient has a past medical history si gnificant for hypertension, obesity, rheumatoid arthritis, anxiety. .. Concern--> patient continues to have lower lumbar spine pain and often has radiculopathy symptoms into bilateral lower extremities. She reports her bilateral lower extremities often get completely numb and has been certain for back issue. Of note has had epidurals with her pregnancies. PLAN: Willing to get MRI to evaluate for disc herniation .. Hyperparathyroidism: Has follow-up with [facility] and continues on vitamin-D supplementation. .. Hyperlipidemia: Does have high triglycerides, She continues on fenofibrate without side effect. Has been working on dietary modifications. .. Impaired glucose metabolism: Most recent A1c of 5.7, fasting blood sugar accep table. Unfortunately has gained weight since last office visit. She plans changing her diet and physical activity. .. Rheumatoid arthritis: Has lost follow-up with her with her detail assembler as salena reyez have left practice. Is able to manage her pain with NSAID as needed along with folic acid.. She will be looking for a new detail assembler in near future. .. Hypertension: Blood pressure acceptable today in office. Continues on lisinopril 10 mg with good effect on her blood pressure. Colon cancer screening: Scheduled at [facility]- February 2025. mammo: Done May 2024 normal - [facility]: followed at [facility] - Vaccines: Up-to-date with flu vaccine, COVID vaccine pneumonia vaccine, needs tetanus vaccine, PFSH Medical History COVID-19 virus infection Panic disorder GERD without esophagitis Surgical History History of total knee replacement History of surgery History of extraction of renal calculus History of laparoscopy History of section History of carpal tunnel release H/O right knee surgery History of tonsillectomy Family History Father Diabetes Sleep apnea Pulmonary fibrosis Mother Diabetes Obesity Osteoarthritis Hypercholesteremia Family/Other Substance use disorder Mental health disorder Social History (Updated 08/31/24 @ 08:24 by Louis Eller PA-C) Housing: House Alcohol intake: current Alcohol intake frequency: holidays/special occasions only Alcohol type: beer, wine and hard liquor Patient Tobacco Use Status: Never used Tobacco e-Cigarette/Vaping Use: Never Used Second Hand Smoke Exposure: No service: No Current occupational status: employed 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 1. Little interest or pleasure in doing things: not at all 2. Feeling down, depressed, or hopeless: not at all 3. Trouble falling or staying asleep, or sleeping too much: not at all 4. Feeling tired or having little energy: not at all 5. Poor appetite or overeating: not at all 6. Feeling bad about yourself - or that you are a failure or have let yourself or your family down: not at all 7. Trouble concentrating on things, such as reading the newspaper or watching television: not at all 8. Moving or speaking so slowly that other people could have noticed. Or the opposite - being so fidgety or restless that you have been moving around a lot more than usual: not at all 9. Thoughts that you would be better off or of hurting yourself in some way: not at all Total score: 0 Depression Screening Interpretation: Negative Depression Screening Done: Yes 42940 - PHQ-9 Billing: Yes Source: Developed by Drs. Parker Moran, Olive Fiore, Carmelo Simmons and colleagues, with an educational ashley from [employer] Thrive Questionnaire Date Thrive assessed: 08/31/24 I am a: Patient What is your living situation today?: I have a steady place to live Within the past 12 months, did the food you bought not last and you didn't have the money to get more?: Never true Within the past 12 months, did you worry whether your food would run out before you got money to buy more?: Never true Do you have trouble paying for medicines?: No Do you have trouble getting transportation to medical appointments?: No Do you have trouble paying your heating and electricity bill?: No Do you have trouble taking care of your child, family member or friend?: No Do you have trouble with day-to-day activities such as bathing, preparing meals, shopping, managing finances, etc.?: No Are you currently unemployed and looking for a job?: No Are you interested in more education?: No Please select the resources that you would like help with: None Currently or been in a relationship where the following occur: No concerns reported THRIVE Score: 0 AUDIT C Alcohol Use Questionnaire (AUDIT-C) 1. How often do you have a drink containing alcohol?: Monthly or less 2. How many drinks containing alcohol do you have on a typical day when you are drinking?: 1 or 2 3. How often do you have six or more drinks on one occasion?: Never Total Score: 1 PATY-7 AMB Questionnaire PATY-7 Date PATY - 7 assessed: 08/31/24 Feeling nervous, anxious, or on edge: 0 = Not at all Not being able to stop or control worryin = Not at all Worrying too much about different things: 0 = Not at all Trouble relaxin = Not at all Being so restless that it is hard to sit still: 0 = Not at all Becoming easily annoyed or irritable: 0 = Not at all Feeling afraid as if something awful might happen: 0 = Not at all Total PATY-7 score (0-4 normal; 5-9 mild; 10-14 moderate; 15-21 severe): 0 Source: Developed by Drs. Parker Moran, Olive Fiore, Carmelo Simmons and colleagues, with an educational ashley from [employer] Review of Systems Const Denies body aches, Denies chills, Denies excessive sweating, Denies fatigue, Denies fever(s) and Denies headache(s) Eyes Denies blurry vision ENT Denies dysphagia, Denies vertigo, Denies dizziness, Denies headache(s), Denies hearing loss and Denies tinnitus Card Denies chest pain, Denies chest pain with activity, Denies syncope, Denies irregular heart rhythm and Denies dyspnea Resp Denies chest congestion, Denies cough, Denies hemoptysis, Denies dyspnea and Denies wheezing GI Denies abdominal pain, Denies melena, Denies hematochezia, Denies coffee ground emesis, Denies dysphagia, Denies diarrhea, Denies nausea and Denies vomiting Denies urinary frequency, Denies dysuria, Denies urinary hesitancy and Denies urinary urgency Musc Reports back pain, Denies arthralgias, Denies limited range of motion, Denies muscle cramps and Denies muscle weakness Skin/Breast Denies rash and Denies skin ulcer Neuro Denies Abnormal speech present, Denies confusion, Denies vertigo, Denies dizziness, Denies syncope, Denies headache(s), Denies memory loss and Denies seizure-like activity Psych Denies anxiety, Denies confusion, Denies depression, Denies memory loss, Denies panic attacks and Denies paranoia Endo Denies excessive sweating, Denies fatigue, Denies flushing, Denies polydipsia and Denies polyuria Aller/Immun Denies wheezing Physical exam (Primary Care) Vital Signs: Last Vital Signs BP 122/78 08/31/24 07:55 BMI result Body Mass Index 43.4 BMI Assessment/Plan discussion: High BMI High, discussed plan: lifestyle, weight reduction, dietary and physical activity Tobacco/Smoking Status: Tobacco use Status Tobacco use date assessed 12/06/23 08/31/24 08:01 Patient Tobacco Use Status Never used Tobacco 08/31/24 08:24 e-Cigarette/Vaping Use Never Used 08/31/24 08:24 PHQ-9: PHQ-9 Score PHQ-9: Total score 0 08/31/24 08:24 Depression Screening Interpretation: Negative Thrive Assessment: Date of Thrive Assessment Date Thrive assessed 08/31/24 08/31/24 08:01 Currently or been in a relationship where the following occur: No concerns reported Const Other: Obese General: cooperative, comfortable, no acute distress, alert and awake; No confusion Orientation/consciousness: oriented to person, oriented to place, patient oriented x3 and No confusion HENMT Head: Yes normocephalic Ears: external ears normal and TM's normal bilaterally Face and sinus: No sinus tenderness Mouth: Normal oral and palatal mucosa present and tongue normal Teeth and gingiva: dentition normal and gingiva normal Throat: Yes posterior oropharynx normal, Yes tonsils normal and Yes uvula midline Eyes Conjunctivae: conjunctivae normal Sclerae: sclerae normal Pupils: Equal, round and reactive pupils present EOM: EOMs intact bilaterally Direct Ophthalmoscopy: No no photophobia Neck Neck: Yes no lymphadenopathy, No tender and Yes no JVD Thyroid: Thyroid normal Carotids: no bruits Chest Chest palpation & inspection: no tenderness Resp Effort & Inspection: normal respiratory effort, no audible wheezes, not labored and no stridor Auscultation: no crackles, no rales, no rhonchi and no wheezes Cardio Jugular venous distension: no JVD Rate: regular rate, not bradycardic and not tachycardic Rhythm: regular rhythm Bruits: no carotid bruits Peripheral pulses: Peripheral pulses 2+ throughout GI Inspection: Yes normal to inspection, No abdominal wall ecchymosis and No visible herniation Palpation (GI): Soft to palpation, nontender, no guarding, not rigid and No hepatosplenomegaly present Auscultation: normoactive bowel sounds General: Yes no CVA tenderness Back/Spine/Pelvis Back: no CVA tenderness and No back tenderness Cervical Spine: cervical ROM normal Thoracic/Lumbar Spine: thoracic and lumbar spine normal to inspection, straight leg raise negative bilaterally, No thoraco-lumbar ROM limited and No lumbar spi nal tenderness Skin Lesions: no lesions Rashes: no rashes Wounds: no wounds Neuro General: oriented to person, oriented to place, patient oriented x3, CN's II-XI intact bilaterally and No confusion Cranial nerves: Yes Equal, round and reactive pupils present and Yes Normal accommodation reflex present Cognition (Neuro): normal cognition Speech: No Abnormal speech present Gait exam (Neuro): Normal gait present Motor exam (neuro): 5/5 motor strength present throughout Extrem Right upper extremity: full ROM; no cyanosis Left upper extremity: full ROM; no cyanosis Right lower extremity: no edema Left lower extremity: no edema Psych Appearance: grossly normal Mental Status: mental status grossly normal Affect: normal affect Attitude: cooperative Thought process: Normal thought process present Immunizations Boostrix Tdap 2.5 Lf unit-8 mcg-5 Lf/0.5 mL intramuscular syringe Performing Provider: Louis Eller PA-C [facility] Administered by: J CARLOS Nicholson on 08/31/24 08:41 Dose Route Admin Location Dispensed Lot Number Expiration Date NDC Associate Research Scientist 0.5 mL IM Left Deltoid 0.5 mL [id number] 11/01/26 96942-811-26 Broadband Voice VIS Given Date VIS Provided VIS Publication Date 08/31/24 Single Vaccine 21 Eligibility Eligibility Date Funding Source Not [facility] Eligible 08/31/24 Private Coding Level of Care Code Est Pt Prev Care 40-64y(53897) Diagnoses Annual physical exam Z00.00 Rheumatoid arthritis involving right knee, unspecified whether rheumatoid factor present M06.9 Rheumatoid arthritis location: knee Rheumatoid factor presence: unspecified presence Laterality: right Essential hypertension I10 Hypertension type: essential hypertension Impaired glucose metabolism R73.09 Lumbar radiculitis M54.16 Class 3 obesity E66.813 Additional Codes PHQ-9 - 55172 - PHQ-9 Billing: Yes ([id number]) Assessment & Plan Assessment & Plan (1) Annual physical exam: Code(s): Z00.00 - Encounter for general adult medical examination without abnormal findings Category: Medical Plan: As per [facility] (2) Rheumatoid arthritis: Code(s): M06.9 - Rheumatoid arthritis, unspecified Category: Medical Qualifiers: Rheumatoid arthritis location: knee Rheumatoid factor presence: unspecified presence Laterality: right Qualified Code(s): M06.9 - Rheumatoid arthritis, unspecified Plan: Patient has a diagnosis of rheumatoid arthritis. Has not been able to reestablish with a detail assembler. Still has joint pain thus she uses [id number] analgesics at times. She would like to reestablish with a detail assembler for further evaluation and treatment. (3) HTN (hypertension): Code(s): I10 - Essential (primary) hypertension Category: Medical Qualifiers: Hypertension type: essential hypertension Qualified Code(s): I10 - Essential (primary) hypertension Plan: Patient's blood pressure acceptable today in office. Will continue her current dose of lisinopril with goal blood pressure to be below 140/90. (4) Impaired glucose metabolism: Code(s): R73.09 - Other abnormal glucose Category: Medical Plan: As per HPI patient's most recent fasting blood sugar stable, A1c at 5.7. She will work on being more physically active and adapting to better eating habits to reduce her sugar. (5) Lumbar radiculitis: Code(s): M54.16 - Radiculopathy, lumbar region Category: Medical Plan: As per HPI patient has been having worsening lower lumbar spine pain and bilateral lower extremity weakness and numbness. Concerns here for disc herniation. She has gotten x-rays over lower lumbar spine in May of 2023 w [facility] did show degenerative changes. Will try for MRI to evaluate for disc herniation. (6) Class 3 obesity: Code(s): E66.813 - Obesity, class 3 Category: Medical Plan: Patient does understand her BMI is over 40 will work on being more physically ac tive and adapting to better eating habits to reduce her weight. Orders: Orders Lipid Panel Today E78.9 - Disorder of lipoprotein metabolism, unspecified Comprehensive [place]. Panel Fast Today E78.9 - Disorder of lipoprotein metabolism, unspecified TDaP Immunization Today Z23 - Encounter for immunization MR lumbar spine wo con Today M54.16 - Radiculopathy, lumbar region Hemoglobin A1c Today R73.09 - Other abnormal glucose Complete Blood Count no Diff Today E78.9 - Disorder of lipoprotein metabolism, unspecified Microalbumin, Random (w Creat) Today I10 - Essential (primary) hypertension Referrals Rheumatology Referral M06.9 - Rheumatoid arthritis, unspecified Medications: Refilled lorazepam 0.5 mg PO DAILY 14 days PRN 14 tabs 0RF anxiety F41.0 - Panic disorder [episodic paroxysmal anxiety] folic acid 1 mg PO DAILY 90 days 90 tabs 1RF M06.9 - Rheumatoid arthritis, unspecified
[2024-08-31 07:55] VITALS: BP 122/78; BMI 43.4
== END 2024-08-31 08:45 | disposition home or self-care (01) ==
PROVIDERS: PCP Physician Assistant; Visit Provider Physician Assistant
DX: Z00.00 Encounter for general adult medical examination without abnormal findings (principal); M06.9 Rheumatoid arthritis, unspecified; E66.813 Obesity, class 3; Z68.41 Body mass index [BMI] 40.0-44.9, adult; I10 Essential (primary) hypertension; R73.09 Other abnormal glucose; M54.16 Radiculopathy, lumbar region

== ENCOUNTER → 2024-08-31 07:46 | Outpatient (BNVA) | payer OTHER, SELFPAY | PROVIDERS: PCP Physician Assistant; Visit Provider Physician Assistant | DX: Z00.00 Encounter for general adult medical examination without abnormal findings (principal); Z23 Encounter for immunization; M06.9 Rheumatoid arthritis, unspecified; I10 Essential (primary) hypertension; R73.09 Other abnormal glucose; M54.16 Radiculopathy, lumbar region; E66.813 Obesity, class 3; Z68.41 Body mass index [BMI] 40.0-44.9, adult | CPT/HCPCS: 90471; 90715; 96127 ==

== ENCOUNTER 2024-12-19 10:46 | Outpatient (AMB) | payer BC, SELFPAY ==
--- NOTE | 2024-12-19 10:53 | A.OFFVIS_ITS ---
Vital Signs 12/19/24 10:54 Height 5 ft 3 in Weight 256 lb 2.834 oz BMI 45.4 BP 90/52 L Blood Pressure Location Lt brachial Position Sitting Pulse 78 Pulse Source Pulse Oximeter Pulse Oximetry (%) 98 Oxygen Delivery Method Room Air Intake Visit Reasons: RA/internal ref Intake Note: Pt presents today for arthritis in the left wrist and right knee both ankle possible hips and shoulders. She was seen by two ot actimize architect who are no longer practicing pt states that her pcp has been trying to manage this for her and has been off of medications for 2 years. Allergies acetaminophen [From Percocet] Allergy (Unknown, Verified 12/19/24 10:58) vomitting amoxicillin Allergy (Unknown, Verified 12/19/24 10:58) hives hydrocodone [From Vicodin] Allergy (Unknown, Verified 12/19/24 10:58) hives Penicillins Allergy (Unknown, Verified 12/19/24 10:58) hives gemfibrozil Adverse Reaction (Intermediate, Verified 12/19/24 10:58) Palpitations oxycodone Adverse Reaction (Unknown, Verified 12/19/24 10:58) Vomiting HPI HPI RA/internal ref: Details: New Patient Erick. 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 She has had recurrent right knee cortisone injections. She had arthroscopic procedure age 6, during college and after college. Ortho Dr. Avendano manages right knee pain who adviced patient to have replacement. She had right TKR 2023. She felt best when she was on enbrel and MTX. She did not have recurrent swelling in her wrists during adulthood. Her right knee was the only joint that was active while she was an adult. At this time her morning stiffness is 30 minutes. No new joint swelling or dactylitis. She denies uveitis, psoriasis, bloody stools. She has history of IBS. She has been experiencing lower back pain, buttocks pain and hip pain, which is exacerbated with going upstairs. She has numbness in both legs extending to toe numbness when she walks. She has been referred to PT by PCP. She takes ibuprofen 600 mg at night. She failed naproxen, plaquenil (d/c after eye exam revealed loss of color pigment on exam). Celebrex initially caused heavy menstruation and prolonged bleeding with cuts but no issues when she used it after knee surgery last year. She took Enbrel and MTX 13 years ago for 2 year duration both d/c fears because her father was diagnosed with pulmonary fibrosis attributed to medications. She was seeing Dr. Lin at the time. She denies her father being on Enbrel. Monotherapy Leflunomide caused parathyroid hormone started when she was seeing Dr. Mars. Off of leflunomide her PTH level are normal. Father had pulmonary fibrosis attributed to medication use/occupational exposure and hx of Ulcerative colitis. PMx: left ankle fracture after fall down 4 steps of stairs 10/10/2021. Right carpal tunnel release, R de quervain's tendonitis s/p surgery, GERD, IBS, HLD, anxiety/depression, vitamin D deficiency on supplement 4000 IU daily recommend by endocrinology, and kidney stones. She was followed by endocrinology for elevated PTH, multiple kidney stones of bilateral kidney s/p lithotripsy and stent placement. She was recently discharged from endocrinology practice in 11/30/2024. Son has celieac disease. No history of inflammatory arthritis or any other rheumatological autoimmune disease in family. Sx: She consumes alcohol on special occasions. Denies smoking. L-spine x-ray from the past reveals mild degenerative arthritis including mild anterolisthesis of spine. [facility] Medical History COVID-19 virus infection Panic disorder GERD without esophagitis Surgical History History of total knee replacement History of surgery History of extraction of renal calculus History of laparoscopy History of section History of carpal tunnel release H/O right knee surgery History of tonsillectomy Family History Father Diabetes Sleep apnea Pulmonary fibrosis Mother Diabetes Obesity Osteoarthritis Hypercholesteremia Family/Other Substance use disorder Mental health disorder Social History Housing: House Alcohol intake: current Alcohol intake frequency: holidays/special occasions only Alcohol type: beer, wine and hard liquor Patient Tobacco Use Status: Never used Tobacco e-Cigarette/Vaping Use: Never Used Second Hand Smoke Exposure: No service: No Current occupational status: employed 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 Good respiratory effort Skin: No lesions seen MSK: No tenderness of any joints of upper extremities or lower extremities. No synovitis. She has pain when she abducts, external rotates an internal rotates bilateral shoulders. Full range of motion actively. Valgus deformity of bilateral needs. Right hip external rotation is not full compared to left hip external rotation. She has normal range of motion of knees. Tender to palpate lower lumbar spinous process. No paraspinal muscle tenderness. No SI joint tenderness. Negative MAITE. Assessment & Plan Assessment & Plan (1) Rheumatoid arthritis: Comment: She has history of TANJA pauci articular, which has evolved to rheumatoid arthritis mainly manifesting with recurrent synovitis of right knee, which was replaced 2023 without recurrence of symptoms. At this time she remains in clinical remission. We discussed considering being on DMARD therapy to prevent progression of disease such as methotrexate. I have ordered labs and x-rays for evaluation of her rheumatoid arthritis. Code(s): M06.9 - Rheumatoid arthritis, unspecified Category: Medical Qualifiers: Laterality: right Rheumatoid arthritis location: knee Rheumatoid f actor presence: unspecified presence Qualified Code(s): M06.9 - Rheumatoid arthritis, unspecified Plan: Baseline x-rays ordered Baseline labs ordered Return to clinic in 2-4 weeks Orders: Orders Complete Blood Count Auto Diff Today M06.9 - Rheumatoid arthritis, unspecified Creatinine Today M06.9 - Rheumatoid arthritis, unspecified Hepatitis B,C Profile Today M06.9 - Rheumatoid arthritis, unspecified Erythrocyte Sedimentation Rate Today M06.9 - Rheumatoid arthritis, unspecified XR hand LT min 3V Today M06.9 - Rheumatoid arthritis, unspecified XR hand RT min 3V Today M06.9 - Rheumatoid arthritis, unspecified XR foot LT min 3V Today M06.9 - Rheumatoid arthritis, unspecified Alanine Aminotransferase Today M06.9 - Rheumatoid arthritis, unspecified Aspartate Amino Transferase Today M06.9 - Rheumatoid arthritis, unspecified T Spot TB Today M06.9 - Rheumatoid arthritis, unspecified Cyclic Citrullinated Peptide Today M06.9 - Rheumatoid arthritis, unspecified CARTER Reflex Titer and Pattern Today M06.9 - Rheumatoid arthritis, unspecified C Reactive Protein Today M06.9 - Rheumatoid arthritis, unspecified HLA B27 Today M06.9 - Rheumatoid arthritis, unspecified XR foot RT min 3V Today M06.9 - Rheumatoid arthritis, unspecified Coding Level of Care Code New Pt Level 4 (12707) Diagnoses Rheumatoid arthritis involving right knee, unspecified whether rheumatoid factor present M06.9 Laterality: right Rheumatoid arthritis location: knee Rheumatoid factor presence: unspecified presence
[2024-12-19 10:54] VITALS: BP 90/52; PULSE 78; O2SAT 98; BMI 45.4
== END 2024-12-19 12:00 | disposition home or self-care (01) ==
LOC: HO.RHES 10:46
PROVIDERS: PCP Physician Assistant; Visit Provider Internal Medicine Rheumatology
DX: M06.9 Rheumatoid arthritis, unspecified (principal)
CPT/HCPCS: 99204

== ENCOUNTER → 2024-12-19 10:46 | Outpatient (BNVA) | payer BC, SELFPAY | PROVIDERS: PCP Physician Assistant; Visit Provider Internal Medicine Rheumatology ==

== ENCOUNTER 2025-01-11 09:12 | Outpatient (AMB) | payer BC, SELFPAY ==
--- NOTE | 2025-01-11 09:15 | A.OFFVIS_ITS ---
Vital Signs 01/11/25 09:18 Height 5 ft 6 in Weight 256 lb 6.362 oz BMI 41.4 BP 98/60 Blood Pressure Location Lt brachial Position Sitting Pulse 78 Pulse Source Pulse Oximeter Pulse Oximetry (%) 100 Oxygen Delivery Method Room Air Intake Visit Reasons: 2-4 weeks Intake Note: follow up for arthritis on lab and xrays Accompanied by: Self / Same As Patient Allergies acetaminophen [From Percocet] Allergy (Unknown, Verified 01/11/25 09:16) vomitting amoxicillin Allergy (Unknown, Verified 01/11/25 09:16) hives hydrocodone [From Vicodin] Allergy (Unknown, Verified 01/11/25 09:16) hives Penicillins Allergy (Unknown, Verified 01/11/25 09:16) hives gemfibrozil Adverse Reaction (Intermediate, Verified 01/11/25 09:16) Palpitations oxycodone Adverse Reaction (Unknown, Verified 01/11/25 09:16) Vomiting HPI HPI 2-4 weeks: Details: She took Sulfasalazine 1000mg BID before leflunomide for a few years. No new joints with symptoms or joint swelling. No recent infections PFSH Medical History COVID-19 virus infection Panic disorder GERD without esophagitis Surgical History History of total knee replacement History of surgery History of extraction of renal calculus History of laparoscopy History of section History of carpal tunnel release H/O right knee surgery History of tonsillectomy Family History Father Diabetes Sleep apnea Pulmonary fibrosis Mother Diabetes Obesity Osteoarthritis Hypercholesteremia Family/Other Substance use disorder Mental health disorder Social History Housing: House Alcohol intake: current Alcohol intake frequency: holidays/special occasions only Alcohol type: beer, wine and hard liquor Patient Tobacco Use Status: Never used Tobacco e-Cigarette/Vaping Use: Never Used Second Hand Smoke Exposure: No service: No Current occupational status: employed 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 Good respiratory effort Skin: No lesions seen MSK: No tenderness of any joints of upper extremities or lower extremities. No synovitis. Normal range of motion of upper extremities. Valgus deformity of bilateral needs. Right hip external rotation is not full compared to left hip external rotation. She has normal range of motion of knees. No MTP tenderness. Assessment & Plan Assessment & Plan (1) Rheumatoid arthritis: Comment: Inflammatory arthritis of right knee resolved after replacement 2023. She continues to have elevated inflammatory markers on recent labs 12/2024. Her history of TANJA with evolution of inflammatory arthritis in adulthood needs to be taken into consideration for maintenance DMARD therapy to prevent progression of inflammatory arthritis and reoccurrence. We discussed low to moderate dose methotrexate. Discussed side effects, benefits and drug monitoring. Patient agrees with plan to be on maintenance. I will follow inflammatory markers. 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 Prior to R TKR, she had recurrent right knee cortisone injections and arthroscopic procedures before and after college. She has not been on DMARD therapy for 2 years. She felt best when she was on enbrel and MTX 13 years ago for 2 years d/c due to fear of getting pulmonary fibrosis because her father was diagnosed with pulmonary fibrosis attributed to medications (amiodarone) and occupational exposure. She was on SSZ for 3 years. Monotherapy Leflunomide caused parathyroid hormone elevation. She failed naproxen, plaquenil (d/c after eye exam revealed loss of color pigment on exam). Celebrex initially caused heavy menstruation and prolonged bleeding with cuts but no issues when she used it after knee surgery. MTX 01/2025 for maintenance. CARTER negative. Code(s): M06.9 - Rheumatoid arthritis, unspecified Category: Medical Qualifiers: Laterality: right Rheumatoid arthritis location: knee Rheumatoid factor presence: unspecified presence Qualified Code(s): M06.9 - Rheumatoid arthritis, unspecified Plan: Start methotrexate 12.5 mg once weekly Continue folic acid 1 mg daily Labs given to patient to have done in 1 month for drug monitoring on methotrexate including rheumatoid factor and anti CCP antibody that were not done with last set of labs. Per insurance requirement she needs to have labs done at [facility]. Return to clinic in 3 months Orders: Orders Rheumatoid Factor Today M06.9 - Rheumatoid arthritis, unspecified Complete Blood Count Auto Diff Today Z79.60 - correction (current) use of unspecified immunomodulators and immunosuppressants Creatinine Today Z79.60 - intermodal truck driver (current) use of unspecified immunomodulators and immunosuppressants C Reactive Protein Today Z79.899 - Other supervisor intermediates (current) drug therapy Alanine Aminotransferase Today Z79.60 - intermodal truck driver (current) use of unspecified immunomodulators and immunosuppressants Aspartate Amino Transferase Today Z79.60 - intermodal truck driver (current) use of unspecified immunomodulators and immunosuppressants Erythrocyte Sedimentation Rate Today Z79.899 - Other supervisor intermediates (current) drug therapy Medications: New methotrexate sodium Check labs in 4 weeks 12.5 mg (5 x 2.5 mg) PO QWEEK 4 weeks 20 tabs 0RF Refilled folic acid 1 mg PO DAILY 90 days 90 tabs 2RF M06.9 - Rheumatoid arthritis, unspecified Coding Level of Care Code Est Pt Level 4 (48414) Complex EM visit Add On G2211 Diagnoses Rheumatoid arthritis involving right knee, unspecified whether rheumatoid factor present M06.9 Laterality: right Rheumatoid arthritis location: knee Rheumatoid factor presence: unspecified presence
[2025-01-11 09:18] VITALS: BP 98/60; PULSE 78; O2SAT 100; BMI 41.4
--- OUTSIDE RECORDS SUMMARY | 2025-01-11 09:30 | XMS_ITS | Clinical Summary ---
Author Organization [facility] [address] [place] [address] Address [address], [place] Phone Care Team Providers Care Oral Surgery Technician Name Role Phone Unavailable Primary Care Provider Unavailabl e Encounters Date Type Department Care Team Description 12/26/2024 2:19 PM EDT - 12/26/2024 11:59 PM EDT Hospital Encounter [facility] [address], [place] [phone] Rheumatoid arthritis, unspecified (CMS/HCC) Discharge Disposition: Home or Self Care 12/26/2024 2:19 PM EDT - 12/26/2024 11:59 PM EDT Hospital Encounter [facility] [place] [address] [place] [address] Rheumatoid arthritis, unspecified (CMS/HCC) Discharge Disposition: Home or Self Care from Last 3 Months Social History Tobacco Use Types Packs/Day Years Used Date Smoking Tobacco: Never Assessed Comments Unknown Sex and Gender Information Value Date Recorded Sex Assigned at Not on file Legal Sex Female 7:09 PM EST Gender Identity Not on file Sexual Orientation Not on file Plan of Treatment Health Maintenance Due Date Last Done Comments Breast Cancer Screening 1978 Hepatitis B Vaccines (1 of 3 - 19+ 3-dose series) 1997 Cervical Cancer Screening: Pap Smear 1999 Pneumococcal Vaccine: Pediatrics (0 to 5 Years) and At-Risk Patients (6 to 64 Years) (2 of 2 - PCV) 09/18/2021 09/18/2020 Cholesterol Screening (Lipid Panel) 12/22/2024 Colorectal Cancer Screening: Colonoscopy 12/22/2024 Depression Screening 12/22/2024 HIV Screening 12/22/2024 Hepatitis C Screening 12/22/2024 Social Influencers of Health Screening 12/22/2024 Hypertension/CHF/CAD Annual BMP Blood Test 12/27/2024 DTaP,Tdap,and Td Vaccines (4 - Td or Tdap) 08/31/2034 08/31/2024, 07/29/2011, 03/12/2011 Influenza Vaccine Completed 06/29/2024, , 06/26/2022, Additional history exists COVID-19 Vaccine Completed 07/21/2024, , 01/20/2022, Additional history exists HIB Vaccines Aged Out No longer eligi ble based on patient's age to complete this topic HPV Vaccines Aged Out No longer eligi ble based on patient's age to complete this topic Hepatitis A Vaccines Aged Out No long er eligible based on patient's age to complete this topic IPV Vaccines Aged Out No longer eligi ble based on patient's age to complete this topic MMR Vaccines Aged Out No longer eligi ble based on patient's age to complete this topic Meningococcal ACWY Vaccine Aged Out N o longer eligible based on patient's age to complete this topic Meningococcal B Vacine Aged Out No lo nger eligible based on patient's age to complete this topic RSV Immunization Patients Under 20 months Aged Out No longer eligible based on patient's age to complete this topic Varicella Vaccines Aged Out No longer eligible based on patient's age to complete this topic Procedures Procedure Name Priority Date/Time Associated Diagnosis Comments XR HAND 3+ VIEWS BILAT Routine 12/26/2024 2:36 PM EDT Rheumatoid arthritis, unspecified (CMS/HCC) XR FOOT 3+ VIEWS BILAT Routine 12/26/2024 2:35 PM EDT Rheumatoid arthritis, unspecified (CMS/HCC) from Last 3 Months Results * XR Hand 3+ Views bilat (12/26/2024 2:36 PM EDT) Anatomical Region Laterality Modality Upper Extremities, Hand Bilateral Radiogra phic Imaging 12/27/2024 7:46 AM EDT Impressions 12/27/2024 8:15 AM EDT No appreciable arthritic changes. POS - [id number] -------- FINAL REPORT -------- Dictated By: Mary Hui Dictated Date: 12/27/2024 07:46 ET Assigned Physician: Mray Hui Reviewed and Electronically Signed By: Mary Hui Signed Date: 12/27/2024 08:15 ET Workstation ID: [id number] Transcribed By: Self Edit Transcribed Date: 12/27/2024 07:54 ET Narrative 12/27/2024 8:15 AM EDT EXAM: Bilateral hand x-ray HISTORY: Rheumatoid arthritis. COMPARISON: None FINDINGS: 3 views of both hands were performed. No evidence of an acute fracture or malalignment. ??Joint spaces are maintained. ??No erosions identified. ??No destructive bone lesion. ??No soft tissue calcification. Procedure Note Mary Hui MD - 12/27/2024 EXAM: Bilateral hand x-ray HISTORY: Rheumatoid arthritis. COMPARISON: None FINDINGS: 3 views of both hands were performed. No evidence of an acute fracture or malalignment. Joint spaces aremaintained. No erosions identified. No destructive bone lesion. No softtissue calcification. IMPRESSION: No appreciable arthritic changes. POS - [id number] -------- FINAL REPORT -------- Dictated By: Mary Hui Dictated Date: 12/27/2024 07:46 ET Assigned Physician: Mary Hui Reviewed and Electronically Signed By: Mary Hui Signed Date: 12/27/2024 08:15 ET Workstation ID: [id number] Transcribed By: Self Edit Transcribed Date: 12/27/2024 07:54 ET us Michael Alison Whitten MD IMG XR PROCEDURES Final R esult * XR Foot 3+ Views bilat (12/26/2024 2:35 PM EDT) Anatomical Region Laterality Modality Lower Extremities, Foot Bilateral Radiogra phic Imaging 12/27/2024 7:54 AM EDT Impressions 12/27/2024 8:00 AM EDT Very mild degenerative changes at the left 1st MTP joint. ??Bilateral calcaneal spurring. POS - [id number] -------- FINAL REPORT -------- Dictated By: Mary Hui Dictated Date: 12/27/2024 07:54 ET Assigned Physician: Mary Hui Reviewed and Electronically Signed By: Mary Hui Signed Date: 12/27/2024 08:00 ET Workstation ID: [id number] Transcribed By: Self Edit Transcribed Date: 12/27/2024 07:54 ET Narrative 12/27/2024 8:00 AM EDT EXAM: Bilateral foot x-ray HISTORY: Rheumatoid arthritis. COMPARISON: None FINDINGS: 3 views of both feet were performed. No evidence of an acute fracture or malalignment. ??Very mild joint space narrowing at the left 1st MTP joint. ??Joint spaces otherwise appear preserved. ??Unusual configuration of the distal end of the left talus with what appears to be an accessory ossicle at the distal end. ??This is likely developmental. ??No erosions identified. ??No destructive bone lesion. ??Small bilateral posterior calcaneal spurs. ??Small to medium-sized plantar calcaneal spur on the right and tiny on the left. Procedure Note Mary Hui MD - 12/27/2024 EXAM: Bilateral foot x-ray HISTORY: Rheumatoid arthritis. COMPARISON: None FINDINGS: 3 views of both feet were performed. No evidence of an acute fracture or malalignment. Very mild joint spacenarrowing at the left 1st MTP joint. Joint spaces otherwise appearpreserved. Unusual configuration of the distal end of the left talus withwhat appears to be an accessory ossicle at the distal end. This is likelydevelopmental. No erosions identified. No destructive bone lesion.Small bilateral posterior calcaneal spurs. Small to medium-sized plantarcalcaneal spur on the right and tiny on the left. IMPRESSION: Very mild degenerative changes at the left 1st MTP joint. Bilateralcalcaneal spurring. POS - [id number] -------- FINAL REPORT -------- Dictated By: Mary Hui Dictated Date: 12/27/2024 07:54 ET Assigned Physician: Mary Hui Reviewed and Electronically Signed By: Mary Hui Signed Date: 12/27/2024 08:00 ET Workstation ID: [id number] Transcribed By: Self Edit Transcribed Date: 12/27/2024 07:54 ET us Michael Alison Whitten MD IMG XR PROCEDURES Final R esult from Last 3 Months Insurance [employer]
== END 2025-01-11 09:45 | disposition home or self-care (01) ==
LOC: HO.RHES 09:13
PROVIDERS: PCP Physician Assistant; Visit Provider Internal Medicine Rheumatology
DX: M06.9 Rheumatoid arthritis, unspecified (principal)
CPT/HCPCS: 99214

== ENCOUNTER 2025-01-11 09:12 | Outpatient (REF) | payer BC, SELFPAY ==
--- OUTSIDE RECORDS SUMMARY | 2025-01-11 10:31 | XMS_ITS | Clinical Summary ---
Author Organization [facility] [address] [place] [address] Address [address], [place] Phone Care Team Providers Care Sales Mgr Name Role Phone Unavailable Primary Care Provider Unavailabl e Encounters Date Type Department Care Team Description 12/26/2024 2:19 PM EDT - 12/26/2024 11:59 PM EDT Hospital Encounter [facility] [address], [place] [phone] Rheumatoid arthritis, unspecified (CMS/HCC) Discharge Disposition: Home or Self Care 12/26/2024 2:19 PM EDT - 12/26/2024 11:59 PM EDT Hospital Encounter [facility] [place] [address] [place] [address] Rheumatoid arthritis, unspecified (CMS/HCC) Discharge Disposition: Home [...] EDT No appreciable arthritic changes. POS - [id number] -------- FINAL REPORT -------- Dictated By: Mary Hui Dictated Date: 12/27/2024 07:46 ET Assigned Physician: Mary Hui Reviewed and Electronically Signed By: Mary Hui Signed Date: 12/27/2024 08:15 ET Workstation ID: [id number] Transcribed By: Self Edit Transcribed Date: 12/27/2024 [...] IMPRESSION: No appreciable arthritic changes. POS - [id number] -------- FINAL REPORT -------- Dictated By: Mary Hui Dictated Date: 12/27/2024 07:46 ET Assigned Physician: Mary Hui Reviewed and Electronically Signed By: Mary Hui Signed Date: 12/27/2024 08:15 ET Workstation ID: [id number] Transcribed By: Self Edit Transcribed Date: 12/27/2024 [...] MTP joint. ??Bilateral calcaneal spurring. POS - [id number] -------- FINAL REPORT -------- Dictated By: Mary Hui Dictated Date: 12/27/2024 07:54 ET Assigned Physician: Mary Hui Reviewed and Electronically Signed By: Mary Hui Signed Date: 12/27/2024 08:00 ET Workstation ID: [id number] Transcribed By: Self Edit Transcribed Date: 12/27/2024 [...] 1st MTP joint. Bilateralcalcaneal spurring. POS - [id number] -------- FINAL REPORT -------- Dictated By: Mary Hui Dictated Date: 12/27/2024 07:54 ET Assigned Physician: Mary Hui Reviewed and Electronically Signed By: Mary Hui Signed Date: 12/27/2024 08:00 ET Workstation ID: [id number] Transcribed By: Self Edit Transcribed Date: 12/27/2024 07:54 ET us Michael Alison Whitten MD IMG XR PROCEDURES Final R esult from Last 3 Months Insurance [employer]
[2025-01-11 17:56] LABS: Rheumatoid Factor < 13.0 IU/mL (<15.0)
[2025-01-16 15:24] LABS: Cyclic Citrullinated Peptide <16 UNITS
== END 2025-01-11 09:13 | disposition home or self-care (01) ==
LOC: HO.HKASLDS 09:12
PROVIDERS: Visit Provider Internal Medicine Rheumatology
DX: M06.9 Rheumatoid arthritis, unspecified (principal)
CPT/HCPCS: 36415; 86200; 86431

== ENCOUNTER 2025-02-28 07:56 | Outpatient (AMB) | payer BC, SELFPAY ==
[2025-02-28 08:01] VITALS: BP 106/62; PULSE 80; RESP 16; TEMP 36.1; O2SAT 98; BMI 42.0
--- NOTE | 2025-02-28 08:01 | A.OFFPC_ITS ---
Vital Signs 02/28/25 08:01 Height 5 ft 6 in Weight 260 lb BMI 42.0 BP 106/62 Blood Pressure Location Lt brachial Position Sitting Respiration 16 Pulse 80 Pulse Source Pulse Oximeter Temp 96.9 F Temp Source Temporal Artery Scan Pulse Oximetry (%) 98 Oxygen Delivery Method Room Air Intake Visit Reasons: f/u HTN/ HLD Psychiatric Therapist Required: No Accompanied by: Self / Same As Patient Allergies acetaminophen [From Percocet] Allergy (Unknown, Verified 02/28/25 08:21) vomitting amoxicillin Allergy (Unknown, Verified 02/28/25 08:21) hives hydrocodone [From Vicodin] Allergy (Unknown, Verified 02/28/25 08:21) hives Penicillins Allergy (Unknown, Verified 02/28/25 08:21) hives gemfibrozil Adverse Reaction (Intermediate, Verified 02/28/25 08:21) Palpitations oxycodone Adverse Reaction (Unknown, Verified 02/28/25 08:21) Vomiting Medication List - Last Reconciled 02/28/25 by Louis Eller PA-C betamethasone dipropionate 0.05% 1 appl topical BID PRN cholecalciferol (vitamin D3) 50 mcg PO DAILY fenofibrate 54 mg PO DAILY 90 days folic acid 1 mg PO DAILY 90 days gabapentin 300 mg PO DAILY lisinopril 10 mg PO DAILY 90 days lorazepam 0.5 mg PO DAILY PRN 14 days omeprazole 20 mg PO QAM sertraline 50 mg PO DAILY Tobacco use date assessed: 02/28/25 Dental Screening Dental Screen Date: 02/28/25 Did you have a dental visit in the last 12 months?: Yes Did you have a dental problem in the last 6 months where you did not have access to dental care?: No Was dental information given to patient?: Patient has dentist HPI f/u HTN/ HLD HPI Details Patient is a 44-year-old female here today for follow-up visit . Patient has a past medical history si gnificant for hypertension, obesity, rheumatoid arthritis, anxiety. .. Concern--> patient continues to have lower lumbar spine pain and often has radiculopathy symptoms into bilateral lower extremities. She reports her bilateral lower extremities often get completely numb and has been certain for back issue. Of note has had epidurals with her pregnancies. She has started gabapentin which has helped her lower extremity and pelvic pain She has been in contact with [facility] in is awaiting appointment to get MRI of lower lumbar spine. We did discuss perhaps seeing pain management for possible pain reduction modality though patient will hold off for now. .. Hyperparathyroidism: Has follow-up with [facility] and continues on vitamin-D supplementation. .. Hyperlipidemia: Does have high triglycerides, She continues on fenofibrate without side effect. Has been working on dietary modifications. .. Impaired glucose metabolism: Most recent A1c 6.0 of fasting blood sugar acceptable. Unfortunately has gained weight since last office visit. She plans changing her diet and physical activity. .. Rheumatoid arthritis: She has regained care with a infant toddler lead teacher. Recent labs showing elevated CRP and SED Rate. She has been started on gabapentin which has been helpful for her pain as well. Is able to manage her pain with NSAID as needed along with folic acid.. .. Hypertension: Blood pressure acceptable today in office. Continues on lisinopril 10 mg with good effect on her blood pressure. [facility] Medical History COVID-19 virus infection Panic disorder GERD without esophagitis Surgical History History of total knee replacement History of surgery History of extraction of renal calculus History of laparoscopy History of section History of carpal tunnel release H/O right knee surgery History of tonsillectomy Family History Father Diabetes Sleep apnea Pulmonary fibrosis Mother Diabetes Obesity Osteoarthritis Hypercholesteremia Family/Other Substance use disorder Mental health disorder Social History Housing: House Alcohol intake: current Alcohol intake frequency: holidays/special occasions only Alcohol type: beer, wine and hard liquor Patient Tobacco Use Status: Never used Tobacco e-Cigarette/Vaping Use: Never Used Second Hand Smoke Exposure: No service: No Current occupational status: employed 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 1. Little interest or pleasure in doing things: not at all 2. Feeling down, depressed, or hopeless: not at all 3. Trouble falling or staying asleep, or sleeping too much: not at all 4. Feeling tired or having little energy: not at all 5. Poor appetite or overeating: not at all 6. Feeling bad about yourself - or that you are a failure or have let yourself or your family down: not at all 7. Trouble concentrating on things, such as reading the newspaper or watching television: not at all 8. Moving or speaking so slowly that other people could have noticed. Or the opposite - being so fidgety or restless that you have been moving around a lot more than usual: not at all 9. Thoughts that you would be better off or of hurting yourself in some way: not at all Total score: 0 Depression Screening Interpretation: Negative Depression Screening Done: Yes 72087 - PHQ-9 Billing: Yes Source: Developed by Drs. Parker Moran, Olive Fiore, Carmelo Simmons and colleagues, with an educational ashley from [email or web address]. Thrive Questionnaire Date Thrive assessed: 02/28/25 I am a: Patient What is your living situation today?: I have a steady place to live Within the past 12 months, did the food you bought not last and you didn't have the money to get more?: Never true Within the past 12 months, did you worry whether your food would run out before you got money to buy more?: Never true Do you have trouble paying for medicines?: No Do you have trouble getting transportation to medical appointments?: No Do you have trouble paying your heating and electricity bill?: No Do you have trouble taking care of your child, family member or friend?: No Do you have trouble with day-to-day activities such as bathing, preparing meals, shopping, managing finances, etc.?: No Are you currently unemployed and looking for a job?: No Are you interested in more education?: No Please select the resources that you would like help with: None Currently or been in a relationship where the following occur: No concerns reported THRIVE Score: 0 AUDIT C Alcohol Use Questionnaire (AUDIT-C) 1. How often do you have a drink containing alcohol?: Never 3. How often do you have six or more drinks on one occasion?: Never Total Score: 0 Score Reviewed/Action Taken: No PATY-7 AMB Questionnaire PATY-7 Date PATY - 7 assessed: 02/28/25 Feeling nervous, anxious, or on edge: 1 = Several days Not being able to stop or control worryin = Not at all Worrying too much about different things: 0 = Not at all Trouble relaxin = Not at all Being so restless that it is hard to sit still: 0 = Not at all Becoming easily annoyed or irritable: 0 = Not at all Feeling afraid as if something awful might happen: 0 = Not at all Total PATY-7 score (0-4 normal; 5-9 mild; 10-14 moderate; 15-21 severe): 1 Source: Developed by Drs. Parker Moran, Olive Fiore, Carmelo Simmons and colleagues, with an educational ashley from [email or web address]. PATY-7 Assessment Billing PATY-7 Assessment Tool: PATY-7 Assessment 50929 Review of Systems Const Denies headache(s) Eyes Denies loss of vision ENT Denies vertigo, Denies dizziness, Denies headache(s) and Denies sore throat Card Denies chest pain, Denies leg edema and Denies lightheadedness Resp Denies cough, Denies hemoptysis and Denies wheezing GI Denies abdominal pain, Denies melena, Denies constipation, Denies diarrhea and Denies vomiting Denies urinary frequency, Denies dysuria and Denies urinary urgency Musc Denies arthralgias, Denies joint swelling, Denies numbness and Denies tingling Neuro Denies Abnormal speech present, Denies behavioral changes, Denies vertigo, Denies dizziness, Denies headache(s), Denies loss of vision, Denies memory loss, Denies numbness and Denies tingling Psych Denies anxiety, Denies behavioral changes, Denies depression, Denies memory loss and Denies panic attacks Cory/Lymph Denies easy bleeding and Denies easy bruising Aller/Immun Denies wheezing Physical exam (Primary Care) Vital Signs: Last Vital Signs Temp 96.9 F 02/28/25 08:01 Pulse 80 02/28/25 08:01 Resp 16 02/28/25 08:01 BP 106/62 02/28/25 08:01 Pulse Ox 98 02/28/25 08:01 Oxygen Delivery Method Room Air 02/28/25 08:01 BMI result Body Mass Index 42.0 BMI Assessment/Plan discussion: High BMI High, discussed plan: lifestyle, weight reduction, dietary and physical activity Tobacco/Smoking Status: Tobacco use Status Tobacco use date assessed 02/28/25 02/28/25 08:11 Patient Tobacco Use Status Never used Tobacco 02/28/25 08:11 e-Cigarette/Vaping Use Never Used 02/28/25 08:11 PHQ-9: PHQ-9 Score PHQ-9: Total score 0 02/28/25 11:08 Depression Screening Interpretation: Negative Thrive Assessment: Date of Thrive Assessment Date Thrive assessed 02/28/25 02/28/25 08:11 Currently or been in a relationship where the following occur: No concerns reported Const General: healthy appearing, no acute distress, alert and awake Nutritional Appearance: well nourished Orientation/consciousness: oriented to person, oriented to place and oriented to time HENMT Ears: TM's normal bilaterally General nose exam: Normal nasal mucous membranes and turbinates present Eyes Conjunctivae: conjunctivae normal Sclerae: sclerae normal Pupils: Equal, round and reactive pupils present Neck Neck: Yes no lymphadenopathy and Yes no JVD Thyroid: Thyroid normal Carotids: no bruits Resp Effort & Inspection: normal respiratory effort and not tachypneic Auscultation: no crackles, no rales, no rhonchi and no wheezes Cardio Rate: regular rate Rhythm: regular rhythm Heart sounds: no murmurs and normal S1 and S2 GI Palpation (GI): Soft to palpation, nontender, no hepatomegaly and no splenomegaly Auscultation: normal bowel sounds Skin General skin exam: no rashes or lesions noted and dry skin Neuro General: oriented to person, oriented to place and oriented to time Cranial nerves: Yes Equal, round and reactive pupils present Speech: No Abnormal speech present Gait exam (Neuro): Normal gait present Motor exam (neuro): no tremor noted Extrem Right upper extremity: full ROM Left upper extremity: full ROM Right lower extremity: full ROM; no edema Left lower extremity: full ROM; no edema Psych Mental Status: mental status grossly normal Speech and movement: Normal speech and movement present Affect: normal affect Attitude: cooperative Thought process: Normal thought process present Coding Level of Care Code Est Pt Level 4 (74589) Diagnoses Rheumatoid arthritis involving right knee, unspecified whether rheumatoid factor present M06.9 Laterality: right Rheumatoid arthritis location: knee Rheumatoid factor presence: unspecified presence Essential hypertension I10 Hypertension type: essential hypertension Impaired glucose metabolism R73.09 Lumbar radiculitis M54.16 Class 3 obesity E66.813 Additional Codes PATY-7 Assessment Billing - PATY-7 Assessment Tool: PATY-7 Assessment 09764 ([id number]) PHQ-9 - 98968 - PHQ-9 Billing: Yes ([id number]) Assessment & Plan Assessment & Plan (1) Rheumatoid arthritis: Comment: Inflammatory arthritis of right knee resolved after replacement 2023. She continues to have elevated inflammatory markers on recent labs 12/2024. Her history of TANJA with evolution of inflammatory arthritis in adulthood needs to be taken into consideration for maintenance DMARD therapy to prevent progression of inflammatory arthritis and reoccurrence. We discussed low to moderate dose methotrexate. Discussed side effects, benefits and drug monitoring. Patient agrees with plan to be on maintenance. I will follow inflammatory markers. 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 Prior to R TKR, she had recurrent right knee cortisone injections and arthroscopic procedures before and after college. She has not been on DMARD therapy for 2 years. She felt best when she was on enbrel and MTX 13 years ago for 2 years d/c due to fear of getting pulmonary fibrosis because her father was diagnosed with pulmonary fibrosis attributed to medications (amiodarone) and occupational exposure. She was on SSZ for 3 years. Monotherapy Leflunomide caused parathyroid hormone elevation. She failed naproxen, plaquenil (d/c after eye exam revealed loss of color pigment on exam). Celebrex initially caused heavy menstruation and prolonged bleeding with cuts but no issues when she used it after knee surgery. MTX 01/2025 for maintenance. CARTER negative. Code(s): M06.9 - Rheumatoid arthritis, unspecified Category: Medical Qualifiers: Laterality: right Rheumatoid arthritis location: knee Rheumatoid factor presence: unspecified presence Qualified Code(s): M06.9 - Rheumatoid arthritis, unspecified Plan: Patient has a diagnosis of rheumatoid arthritis. She has establish care with a new infant toddler lead teacher whom is doing workup. She has recently started gabapentin which has been helpful for her lower extremity pain.. Still has joint pain thus she uses [id number] analgesics at times. She would like to reestablish with a infant toddler lead teacher for further evaluation and treatment. (2) HTN (hypertension): Code(s): I10 - Essential (primary) hypertension Category: Medical Qualifiers: Hypertension type: essential hypertension Qualified Code(s): I10 - Essential (primary) hypertension Plan: Patient's blood pressure acceptable today in office. Will continue her current dose of lisinopril with goal blood pressure to be below 140/90. (3) Impaired glucose metabolism: Code(s): R73.09 - Other abnormal glucose Category: Medical Plan: As per HPI patient's most recent fasting blood sugar stable, A1c at 6.0. She has been noted to have some weight gain as of late. She admits to some dietary indiscretion. . (4) Lumbar radiculitis: Code(s): M54.16 - Radiculopathy, lumbar region Category: Medical Plan: As per HPI patient has been having worsening lower lumbar spine pain and bilateral lower extremity weakness and numbness. Concerns here for disc herniation. She has not been able to be physically active due to her lower back in lower extremity pain. We have been trying to get patient MRI is awaiting to get scheduled at [facility]. Again has started gabapentin which has been helpful for her lower pelvic and lower leg pain. (5) Class 3 obesity: Code(s): E66.813 - Obesity, class 3 Category: Medical Plan: Patient does understand her BMI is over 40 will work on being more physically active and adapting to better eating habits to reduce her weight. Orders: Orders Lipid Panel Today E78.9 - Disorder of lipoprotein metabolism, unspecified Comprehensive [place]. Panel Fast Today I10 - Essential (primary) hypertension Complete Blood Count no Diff Today I10 - Essential (primary) hypertension Microalbumin, Random (w Creat) Today I10 - Essential (primary) hypertension Patient Instructions: Goal: A1c to remain below 6.5, working on weight reduction. Barriers: Adherence to physical activity and healthy eating habits
== END 2025-02-28 08:40 | disposition home or self-care (01) ==
LOC: HO.HMCH 07:57
PROVIDERS: PCP Physician Assistant; Visit Provider Physician Assistant
DX: M06.9 Rheumatoid arthritis, unspecified (principal); I10 Essential (primary) hypertension; Z68.41 Body mass index [BMI] 40.0-44.9, adult; E66.813 Obesity, class 3; R73.09 Other abnormal glucose; M54.16 Radiculopathy, lumbar region

== ENCOUNTER → 2025-02-28 07:56 | Outpatient (BNVA) | payer BC, SELFPAY | PROVIDERS: PCP Physician Assistant; Visit Provider Physician Assistant | DX: I10 Essential (primary) hypertension (principal); M06.9 Rheumatoid arthritis, unspecified; E78.5 Hyperlipidemia, unspecified; R06.9 Unspecified abnormalities of breathing; F41.9 Anxiety disorder, unspecified; E21.3 Hyperparathyroidism, unspecified; R73.09 Other abnormal glucose; M54.16 Radiculopathy, lumbar region; E66.813 Obesity, class 3; Z68.41 Body mass index [BMI] 40.0-44.9, adult | CPT/HCPCS: 96127 ==

== ENCOUNTER 2025-04-17 08:30 | Outpatient (AMB) | payer BC, SELFPAY ==
--- NOTE | 2025-04-17 08:34 | A.OFFVIS_ITS ---
Vital Signs 04/17/25 08:37 Height 5 ft 6 in Weight 263 lb 3.711 oz BMI 42.5 BP 120/80 Blood Pressure Location Lt brachial Position Sitting Pulse 84 Pulse Source Pulse Oximeter Pulse Oximetry (%) 98 Oxygen Delivery Method Room Air Intake Visit Reasons: 3 Months Intake Note: Patient presents today for a follow up for arthritis. Allergies acetaminophen (From Percocet) Allergy (Unknown, Verified 04/17/25 08:36) vomitting amoxicillin Allergy (Unknown, Verified 04/17/25 08:36) hives hydrocodone (From Vicodin) Allergy (Unknown, Verified 04/17/25 08:36) hives Penicillins Allergy (Unknown, Verified 04/17/25 08:36) hives gemfibrozil Adverse Reaction (Intermediate, Verified 04/17/25 08:36) Palpitations oxycodone Adverse Reaction (Unknown, Verified 04/17/25 08:36) Vomiting HPI HPI 3 Months: Details: 3 month hx of right knee pain. R knee TKR 1 year ago. She did not obtain MTX refill after last rx. Labs 02/2025 reviewed. No recent infections. She is planning on having endometrial biopsy and we will be receiving ketorlac 10 mg before and after biopsy. She continues to experience bilateral radicular symptoms with toes being numb. She had 6 weeks of PT that increased her pain. MRI L-spine was denied. PCP is working on appealing it. She is on gabapentin 300 mg q.h.s. prescribed for hot flashes with benefit. [facility] Medical History COVID-19 virus infection Panic disorder GERD without esophagitis Surgical History History of total knee replacement History of surgery History of extraction of renal calculus History of laparoscopy History of section History of carpal tunnel release H/O right knee surgery History of tonsillectomy Family History Father Diabetes Sleep apnea Pulmonary fibrosis Mother Diabetes Obesity Osteoarthritis Hypercholesteremia Family/Other Substance use disorder Mental health disorder Social History Housing: House Alcohol intake: current Alcohol intake frequency: holidays/special occasions only Alcohol type: beer, wine and hard liquor Patient Tobacco Use Status: Never used Tobacco e-Cigarette/Vaping Use: Never Used Second Hand Smoke Exposure: No service: No Current occupational status: employed 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 Good respiratory effort Skin: No lesions seen MSK: No tenderness of any joints of upper extremities or lower extremities. No synovitis. Normal range of motion of upper extremities. Valgus deformity of bilateral needs. Right hip external rotation is not full compared to left hip external rotation. She has normal range of motion of knees. Tender to palpate right anserine bursa. She has scar from TKR. Right knee is warm. No soft tissue swelling. No MTP tenderness. Assessment & Plan Assessment & Plan (1) Rheumatoid arthritis: Comment: Inflammatory arthritis of right knee resolved after replacement 2023. She continues to have elevated inflammatory markers on recent labs 12/2024 and 02/2025. Her history of TANJA with evolution of inflammatory arthritis in adulthood needs to be taken into consideration for maintenance DMARD therapy to prevent progression of inflammatory arthritis and reoccurrence. We discussed low to moderate dose methotrexate, which she tolerated for 1 month. She had microscopic anemia on recent labs from February 2025. I will add on iron studies for evaluation of iron-deficiency anemia. 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 Prior to R TKR, she had recurrent right knee cortisone injections and arthroscopic procedures before and after college. She has not been on DMARD therapy for 2 years. She felt best when she was on enbrel and MTX 13 years ago for 2 years d/c due to fear of getting pulmonary fibrosis because her father was diagnosed with pulmonary fibrosis attributed to medications (amiodarone) and occupational exposure. She was on SSZ for 3 years. Monotherapy Leflunomide caused parathyroid hormone elevation. She failed naproxen, plaquenil (d/c after eye exam revealed loss of color pigment on exam). Celebrex initially caused heavy menstruation and prolonged bleeding with cuts but no issues when she used it after knee surgery. MTX 01/2025 for maintenance. CARTER negative. Code(s): M06.9 - Rheumatoid arthritis, unspecified Category: Medical Qualifiers: Laterality: right Rheumatoid arthritis location: knee Rheumatoid factor presence: unspecified presence Qualified Code(s): M06.9 - Rheumatoid arthritis, unspecified Plan: Continue methotrexate 12.5 mg once weekly Continue folic acid 1 mg daily Labs ordered for patient to do in 3 months Return to clinic in 3 months She will contact PCP about considering increasing gabapentin dose empirically to treat symptoms of bilateral radiculopathy with toe numbness (2) Other continuous churn buttermaker (current) drug therapy: Code(s): Z79.899 - Other correction (current) drug therapy Category: Medical Plan: See above (3) Microcytic anemia: Code(s): D50.9 - Iron deficiency anemia, unspecified Category: Medical Plan: See above (4) Pes anserinus bursitis of right knee: Comment: Discussed conservative management. Right total knee replacement 1 year ago. Code(s): M70.51 - Other bursitis of knee, right knee Category: Medical Plan: Ice knee daily Apply diclofenac gel 1% to affected area 2 to 3 times a day PT ordered If no benefit with PT, I recommend that she contact orthopedic surgeon for further evaluation Orders: Orders Alanine Aminotransferase Today M06.9 - Rheumatoid arthritis, unspecified, Z79.60 - long term acute care registered nurse (current) use of unspecified immunomodulators and immunosuppressants, Z79.899 - Other correction (current) drug therapy Complete Blood Count Auto Diff Today M06.9 - Rheumatoid arthritis, unspecified, Z79.60 - long term acute care registered nurse (current) use of unspecified immunomodulators and immunosuppressants, Z79.899 - Other continuous churn buttermaker (current) drug therapy C Reactive Protein Today M06.9 - Rheumatoid arthritis, unspecified, Z79.899 - Other correction (current) drug therapy Aspartate Amino Transferase Today M06.9 - Rheumatoid arthritis, unspecified, Z79.60 - half-way (current) use of unspecified immunomodulators and immunosuppressants, Z79.899 - Other continuous churn buttermaker (current) drug therapy IRON PROFILE Today D50.9 - Iron deficiency anemia, unspecified PT Evaluation and Treatment Today M70.51 - Other bursitis of knee, right knee Erythrocyte Sedimentation Rate Today M06.9 - Rheumatoid arthritis, unspecified, Z79.899 - Other correction (current) drug therapy Creatinine Today M06.9 - Rheumatoid arthritis, unspecified, Z79.60 - half-way (current) use of unspecified immunomodulators and immunosuppressants, Z79.899 - Other correction (current) drug therapy Ferritin Today D50.9 - Iron deficiency anemia, unspecified Transferrin Today D50.9 - Iron deficiency anemia, unspecified Medications: New diclofenac sodium 1% apply to affected area every 4-6 hours PRN pain 4 grams topical QID 100 grams 2RF methotrexate sodium 12.5 mg (5 x 2.5 mg) PO QWEEK 60 tabs 0RF 12 weeks Changed From folic acid 1 mg PO DAILY 90 days 90 tabs 2RF M06.9 - Rheumatoid arthritis, unspecified To folic acid replace previous rx 1 mg PO DAILY 90 tabs 3RF 90 days M06.9 - Rheumatoid arthritis, unspecified Coding Level of Care Code Est Pt Level 4 (85691) Complex EM visit Add On G2211 Diagnoses Rheumatoid arthritis involving right knee, unspecified whether rheumatoid factor present M06.9 Laterality: right Rheumatoid arthritis location: knee Rheumatoid factor presence: unspecified presence Other continuous churn buttermaker (current) drug therapy Z79.899 Microcytic anemia D50.9 Pes anserinus bursitis of right knee M70.51
[2025-04-17 08:37] VITALS: BP 120/80; PULSE 84; O2SAT 98; BMI 42.5
--- OUTSIDE RECORDS SUMMARY | 2025-04-17 08:39 | XMS_ITS | Clinical Summary ---
Author Organization [facility] [address] [place] [address] [place] [phone] Phone Care Team Providers Care Archivist Economic History Name Role Phone Unavailable Primary Care Provider Unavailabl e Social History Tobacco Use Types Packs/Day Years [...] 5 Years) and At-Risk Patients (6 to 49 Years) (2 of 2 - PCV) 09/18/2021 09/18/2020 Cholesterol Screening (Lipid Panel) 12/22/2024 Colorectal Cancer Screening: Colonoscopy 12/22/2024 Depression Screening 12/22/2024 HIV Screening 12/22/2024 Hepatitis C Screening 12/22/2024 Social Influencers of Health Screening 12/22/2024 Influenza Vaccine (#1) 2025 , 06/23/2023, 06/26/2022, Additional history exists Hypertension/CHF/CAD Annual BMP Blood Test 02/15/2026 02/15/2025 DTaP,Tdap,and Td Vaccines (4 - Td or Tdap) 08/31/2034 08/31/2024, 07/29/2011, 03/12/2011 COVID-19 Vaccine Completed 07/21/2024, , 01/20/2022, Additional [...] age to complete this topic Meningococcal B Vaccine Aged Out No l onger eligible based on patient's age to complete this topic RSV Immunization Patients Under 20 months Aged Out No longer eligible based on patient's age to complete this topic Varicella Vaccines Aged Out No longer eligible based on patient's age to complete this topic Procedures Procedure Name Priority Date/Time Associated Diagnosis Comments CBC WITH AUTO DIFFERENTIAL Routine 02/15/2025 8:07 AM EDT Essential (primary) hypertension Disorder of lipoprotein and lipid metabolism Other abnormal glucose SEDIMENTATION RATE Routine 02/15/2025 8: 07 AM EDT 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) use of unspecified immunomodulators and immunosuppressants MICROALBUMIN CREATININE URINE RATIO Routine 02/15/2025 8:07 AM EDT Essential (primary) hypertension Disorder of lipoprotein and lipid metabolism Other abnormal glucose CBC AND DIFFERENTIAL Routine 02/15/2025 8:07 AM EDT Essential (primary) hypertension Disorder of lipoprotein and lipid metabolism Other abnormal glucose COMPREHENSIVE METABOLIC PANEL Routine 02/15/2025 8:07 AM EDT Essential (primary) hypertension Disorder of lipoprotein and lipid metabolism Other abnormal glucose HEMOGLOBIN A1C Routine 02/15/2025 8:07 AM EDT Essential (primary) hypertension Disorder of lipoprotein and lipid metabolism Other abnormal glucose C-REACTIVE PROTEIN Routine 02/15/2025 8: 07 AM EDT 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) use of unspecified immunomodulators and immunosuppressants from Last 3 Months Results * (ABNORMAL) CBC auto differential (02/15/2025 8:07 AM EDT) [facility] Signature WBC 8.8 4.8 - 10.8 K/mcL LAB HEMETOLOGY METHOD 02/15/2025 10:54 AM [facility] RBC 4.30 3.80 - 4.80 M/mcL LAB HEMETOLOGY METHOD 02/15/2025 10:54 AM [facility] Hemoglobin 10.8(L) 11.5 - 16.0 g/dL LAB HEMETOLOGY METHOD 02/15/2025 10:54 AM [facility] Hematocrit 33.7(L) 35.0 - 47.0 % LAB HEMETOLOGY METHOD 02/15/2025 10:54 AM [facility] MCV 78.9(L) 79.0 - 98.0 FL LAB HEMETOLOGY METHOD 02/15/2025 10:54 AM [facility] MCH 25.3(L) 27.0 - 32.0 pcg LAB HEMETOLOGY METHOD 02/15/2025 10:54 AM [facility] MCHC 32.0 32.0 - 37.0 g/dL LAB HEMETOLOGY METHOD 02/15/2025 10:54 AM [facility] RDW 15.6(H) 11.0 - 15.0 % LAB HEMETOLOGY METHOD 02/15/2025 10:54 AM [facility] Platelets 338 130 - 400 K/mcL LAB HEMETOLOGY METHOD 02/15/2025 10:54 AM [facility] MPV 9.9 7.0 - 11.0 FL LAB HEMETOLOGY METHOD 02/15/2025 10:54 AM [facility] NRBC 0.0 <1.0 % LAB HEMETOLOGY METHOD 02/15/2025 10:54 AM [facility] NRBC Absolute 0.00 <0.10 K/mcL LAB HEMETOLOGY METHOD 02/15/2025 10:54 AM [facility] Neutrophils Relative 64.2 % LAB HEMETOLOGY METHOD 02/15/2025 10:54 AM [facility] Lymphocytes Relative 26.4 % LAB HEMETOLOGY METHOD 02/15/2025 10:54 AM [facility] Monocytes Relative 6.3 % LAB HEMETOLOGY METHOD 02/15/2025 10:54 AM [facility] Eosinophils Relative 2.3 % LAB HEMETOLOGY METHOD 02/15/2025 10:54 AM [facility] Basophils Relative 0.3 % LAB HEMETOLOGY METHOD 02/15/2025 10:54 AM [facility] Immature Granulocytes Relative 0.5 % LAB HEMETOLOGY METHOD 02/15/2025 10:54 AM [facility] Neutrophils Absolute 5.63 1.50 - 7.00 K/mcL LAB HEMETOLOGY METHOD 02/15/2025 10:54 AM [facility] Lymphocytes Absolute 2.31 1.00 - 5.00 K/mcL LAB HEMETOLOGY METHOD 02/15/2025 10:54 AM [facility] Monocytes Absolute 0.55 0.20 - 1.00 K/mcL LAB HEMETOLOGY METHOD 02/15/2025 10:54 AM [facility] Eosinophils Absolute 0.20 0.00 - 0.50 K/mcL LAB HEMETOLOGY METHOD 02/15/2025 10:54 AM [facility] Basophils Absolute 0.03 0.00 - 0.20 K/mcL LAB HEMETOLOGY METHOD 02/15/2025 10:54 AM [facility] Immature Granulocytes Absolute 0.04(H) 0.00 - 0.03 K/mcL LAB HEMETOLOGY METHOD 02/15/2025 10:54 AM EDT [facility] Blood Venous blood specimen / Unknown Venipuncture / Unknown 02/15/2025 8:07 AM EDT 02/15/2025 8:07 AM EDT Louis ALVAREZ LAB BLOOD ORDERABLES Final Result Performing Organization Address [facility]/ZIP Co de Phone Number [facility] [address] [place] [address], [place] [phone] * Microalbumin creatinine urine ratio (02/15/2025 8:07 AM EDT) Creatinine, Urine 86.0 mg/dL LAB CHEMISTRY METHOD 02/15/2025 11:19 AM EDT [facility] Microalb, Ur 5.1 0.0 - 29.0 mg/L LAB CHEMISTRY METHOD 02/15/2025 11:19 AM EDT [facility] Microalb/Creat Ratio 6 <30 mg/g creat LAB CHEMISTRY METHOD 02/15/2025 11:19 AM EDT [facility] Urine Urine specimen obtained by clean catch procedure / Unknown Non-blood Collection / Unknown 02/15/2025 8:07 AM EDT 02/15/2025 8:07 AM EDT Louis ALVAREZ LAB URINE ORDERABLES Final Result Performing Organization Address [facility]/ZIP Co de Phone Number [facility] [address] [place] [address], [place] [phone] * (ABNORMAL) Sedimentation rate (02/15/2025 8:07 AM EDT) Sed Rate 23(H) 0 - 20 mm/hr LAB HEMETOLOGY METHOD 02/15/2025 10:51 AM EDT [facility] Blood Venous blood specimen / Unknown Venipuncture / Unknown 02/15/2025 8:07 AM EDT 02/15/2025 8:07 AM EDT us Michael Whitten MD LAB BLOOD ORDERABLES Ingrid l Result Performing Organization Address [facility]/ZIP Co de Phone Number [facility] [address] [place] [address], [place] [phone] * (ABNORMAL) C-reactive protein (02/15/2025 8:07 AM EDT) C-Reactive Protein 1.63(H) <=0.50 mg/dL LAB CHEMISTRY METHOD 02/15/2025 11:17 AM EDT [facility] Blood Venous blood specimen / Unknown Venipuncture / Unknown 02/15/2025 8:07 AM EDT 02/15/2025 8:07 AM EDT us Michael Whitten MD LAB BLOOD ORDERABLES Ingrid l Result Performing Organization Address [facility] Co de Phone Number [facility] [address] [place] [address], * Hemoglobin A1c (02/15/2025 8:07 AM EDT) Hemoglobin A1C 6.0 <6.5 % LAB CHEMISTRY METHOD 02/15/2025 1:55 PM EDT [facility] Mean Bld Glu Estim. 126 mg/dL LAB CHEMISTRY METHOD 02/15/2025 1:55 PM EDT [facility] Blood Venous blood specimen / Unknown Venipuncture / Unknown 02/15/2025 8:07 AM EDT 02/15/2025 8:07 AM EDT us Louis ALVAREZ LAB BLOOD ORDERABLES Final Result [facility] [address] [place] [address], [place] [phone] * Comprehensive metabolic panel (02/15/2025 8:07 AM EDT) Sodium 142 133 - 145 mmol/L LAB CHEMISTRY METHOD 02/15/2025 11:24 AM [facility] Potassium 4.6 3.5 - 5.5 mmol/L LAB CHEMISTRY METHOD 02/15/2025 11:24 AM [facility] Chloride 108 96 - 110 mmol/L LAB CHEMISTRY METHOD 02/15/2025 11:24 AM [facility] CO2 26 21 - 32 mmol/L LAB CHEMISTRY METHOD 02/15/2025 11:24 AM [facility] Anion Gap 8 3 - 11 LAB CHEMISTRY METHOD 02/15/2025 11:24 AM [facility] Glucose 96 70 - 100 mg/dL LAB CHEMISTRY METHOD 02/15/2025 11:24 AM [facility] BUN 17 5 - 25 mg/dL LAB CHEMISTRY METHOD 02/15/2025 11:24 AM [facility] Creatinine 0.74 0.50 - 1.10 mg/dL LAB CHEMISTRY METHOD 02/15/2025 11:24 AM [facility] eGFR 101 >=60 mL/min/1. 73m2 LAB CHEMISTRY METHOD 02/15/2025 11:24 AM [facility] Comment:Calculation based on the Chronic Kidney Disease Epidemiology Collaboration (CKD-EPI) equation refit without adjustment for race. BUN/Creatinine Ratio 23.0 LAB CHEMISTRY METHOD 02/15/2025 11:24 AM [facility] Calcium 9.5 8.5 - 10.5 mg/dL LAB CHEMISTRY METHOD 02/15/2025 11:24 AM [facility] AST (SGOT) 14 10 - 42 unit/L LAB CHEMISTRY METHOD 02/15/2025 11:24 AM [facility] ALT (SGPT) 19 10 - 60 unit/L LAB CHEMISTRY METHOD 02/15/2025 11:24 AM [facility] Alkaline Phosphatase 87 42 - 121 unit/L LAB CHEMISTRY METHOD 02/15/2025 11:24 AM [facility] Total Protein 6.6 6.0 - 8.0 g/dL LAB CHEMISTRY METHOD 02/15/2025 11:24 AM [facility] Albumin 3.7 3.2 - 5.0 g/dL LAB CHEMISTRY METHOD 02/15/2025 11:24 AM [facility] Total Bilirubin 0.3 0.0 - 1.4 mg/dL LAB CHEMISTRY METHOD 02/15/2025 11:24 AM [facility] Blood Venous blood specimen / Unknown Venipuncture / Unknown 02/15/2025 8:07 AM EDT 02/15/2025 8:07 AM EDT us Louis ALVAREZ LAB BLOOD ORDERABLES Final Result [facility] [address] [place] [address], from Last 3 Months Insurance [employer] Member Subscriber Plan / Payer (Ef fective 2024-Present) Name:Bobbi Carrillo Relation to Subscriber:Self Name:Bobbi Carrillo Payer ID:[id number] (NAIC) Type:Not on file Address: [facility] [address] [place] [id number]
--- OUTSIDE RECORDS SUMMARY | 2025-04-17 08:39 | XMS_ITS | Patient Health Record ---
Author Organization [facility] Address [address] [place] [phone] Care Team Providers Care Lead Maintenance Technician Name Role Phone NONE, NONE Primary Care Provider Parker Quinn [phone] Reason For Referral No Information Plan Of Treatment No Information
== END 2025-04-17 09:18 | disposition home or self-care (01) ==
LOC: HO.RHES 08:30
PROVIDERS: PCP Physician Assistant; Visit Provider Internal Medicine Rheumatology
DX: M06.9 Rheumatoid arthritis, unspecified (principal); Z79.899 Other long term (current) drug therapy; D50.9 Iron deficiency anemia, unspecified; M70.51 Other bursitis of knee, right knee
CPT/HCPCS: 99214

== ENCOUNTER 2025-08-02 08:37 | Outpatient (AMB) | payer OTHER, SELFPAY ==
[2025-08-02 08:39] VITALS: BP 110/80; PULSE 83; O2SAT 98; BMI 42.0
--- NOTE | 2025-08-02 08:39 | MHC.OFFVIS ---
Vital Signs 08/02/25 08:39 Height 5 ft 6 in Weight 260 lb 2.327 oz BMI 42.0 BP 110/80 Blood Pressure Location Rt brachial Position Sitting Pulse 83 Pulse Source Pulse Oximeter Pulse Oximetry (%) 98 Oxygen Delivery Method Room Air Intake Visit Reasons: 3 Months/INSURANCE INACTIVE Intake Note: Patient presents today for a follow up for arthritis. Accompanied by: Self / Same As Patient Allergies acetaminophen (From Percocet) Allergy (Unknown, Verified 08/02/25 08:39) vomitting amoxicillin Allergy (Unknown, Verified 08/02/25 08:39) hives hydrocodone (From Vicodin) Allergy (Unknown, Verified 08/02/25 08:39) hives Penicillins Allergy (Unknown, Verified 08/02/25 08:39) hives gemfibrozil Adverse Reaction (Intermediate, Verified 08/02/25 08:39) Palpitations oxycodone Adverse Reaction (Unknown, Verified 08/02/25 08:39) Vomiting HPI HPI 3 Months/INSURANCE INACTIVE: Details: She feels well. Gynecology started iron tablet 2 months ago. She has been experiencing left ankle pain and swelling for a month. She has been using diclofenac gel once a day. She fractured her ankle 6 years ago. She does not have any hardware in place. [facility] Medical History COVID-19 virus infection Panic disorder GERD without esophagitis Surgical History History of total knee replacement History of surgery History of extraction of renal calculus History of laparoscopy History of section History of carpal tunnel release H/O right knee surgery History of tonsillectomy Family History Father Diabetes Sleep apnea Pulmonary fibrosis Mother Diabetes Obesity Osteoarthritis Hypercholesteremia Family/Other Substance use disorder Mental health disorder Social History Housing: House Alcohol intake: current Alcohol intake frequency: holidays/special occasions only Alcohol type: beer, wine and hard liquor Patient Tobacco Use Status: Never used Tobacco e-Cigarette/Vaping Use: Never Used Second Hand Smoke Exposure: No service: No Current occupational status: employed 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 Good respiratory effort Skin: No lesions seen MSK: No tenderness of any joints of upper extremities or lower extremities. Tender left ankle with mild swelling. Normal range of motion of upper extremities. Valgus deformity of bilateral needs. Right hip external rotation is not full compared to left hip external rotation. She has normal range of motion of knees. She has scar from TKR. No MTP tenderness. Assessment & Plan Assessment & Plan (1) Left ankle sprain: Comment: One-month history Code(s): S93.402A - Sprain of unspecified ligament of left ankle, initial encounter Category: Medical Plan: Increased frequency of diclofenac gel to 4 times a day Ice ankle twice a day X-ray left ankle ordered. Per patient's insurance requirement and needs to be done at [facility] Brace ankle. She will purchase compression sleeve OTC. We discussed importance of supportive footwear Return to clinic in 3 months (2) Rheumatoid arthritis: Comment: Inflammatory arthritis of right knee resolved after replacement 2023. ESR normalized on most recent labs. 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 Prior to R TKR, she had recurrent right knee cortisone injections and arthroscopic procedures before and after college. She has not been on DMARD therapy for 2 years. She felt best when she was on enbrel and MTX 13 years ago for 2 years d/c due to fear of getting pulmonary fibrosis because her father was diagnosed with pulmonary fibrosis attributed to medications (amiodarone) and occupational exposure. She was on SSZ for 3 years. Monotherapy Leflunomide caused parathyroid hormone elevation. She failed naproxen, plaquenil (d/c after eye exam revealed loss of color pigment on exam). Celebrex initially caused heavy menstruation and prolonged bleeding with cuts but no issues when she used it after knee surgery. MTX 01/2025 for maintenance. CARTER negative. Elevated inflammatory markers December 2024 and February 2025. ESR normalized July 2025. Code(s): M06.9 - Rheumatoid arthritis, unspecified Category: Medical Qualifiers: Rheumatoid arthritis location: knee Rheumatoid factor presence: unspecified presence Laterality: right Qualified Code(s): M06.9 - Rheumatoid arthritis, unspecified Plan: Continue methotrexate 12.5 mg once weekly Continue folic acid 1 mg daily Labs ordered for patient to do in 3 months at outside facility per patient's insurance requirement. 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 Aspartate Amino Transferase 3 Months Z79.899 - 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 Creatinine 3 Months Z79.899 - 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 C Reactive Protein 3 Months Z79.899 - 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 Complete Blood Count Auto Diff 07/30/26 Z79.899 - 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 Alanine Aminotransferase 01/31/26 Z79.899 - 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 Alanine Aminotransferase 07/30/26 Z79.899 - Other fpc (current) drug therapy Aspartate Amino Transferase 01/31/26 Z79.899 - Other fpc (current) drug therapy Aspartate Amino Transferase 05/01/26 Z79.899 - 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 Creatinine 07/30/26 Z79.899 - 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 C Reactive Protein 11/02/25 Z79.899 - 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 C Reactive Protein 05/01/26 Z79.899 - Other fpc (current) drug therapy C Reactive Protein 07/30/26 Z79.899 - Other fpc (current) drug therapy Erythrocyte Sedimentation Rate 11/02/25 Z79.899 - 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 Erythrocyte Sedimentation Rate 05/01/26 Z79.899 - 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 XR ankle LT min 3V Today M25.572 - Pain in left ankle and joints of left foot PT Evaluation and Treatment Today M25.572 - Pain in left ankle and joints of left foot, S93.402A - Sprain of unspecified ligament of left ankle, initial encounter Erythrocyte Sedimentation Rate 3 Months Z79.899 - Other fpc (current) drug therapy Complete Blood Count Auto Diff 11/02/25 Z79.899 - Other fpc (current) drug therapy Complete Blood Count Auto Diff 01/31/26 Z79.899 - 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 Complete Blood Count Auto Diff 05/01/26 Z79.899 - 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 Alanine Aminotransferase 11/02/25 Z79.899 - Other fpc (current) drug therapy Alanine Aminotransferase 05/01/26 Z79.899 - 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 Aspartate Amino Transferase 11/02/25 Z79.899 - 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 Aspartate Amino Transferase 07/30/26 Z79.899 - 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 Creatinine 11/02/25 Z79.899 - 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 Creatinine 01/31/26 Z79.899 - 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 Creatinine 05/01/26 Z79.899 - 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 C Reactive Protein 01/31/26 Z79.899 - 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 Erythrocyte Sedimentation Rate 01/31/26 Z79.899 - 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 Erythrocyte Sedimentation Rate 07/30/26 Z79.899 - Other fpc (current) drug therapy Medications: Refilled methotrexate sodium 12.5 mg (5 x 2.5 mg) PO QWEEK 60 tabs 0RF 12 weeks Coding Level of Care Code Est Pt Level 4 (79723) Complex EM visit Add On G2211 Diagnoses Left ankle sprain S93.402A Rheumatoid arthritis involving right knee, unspecified whether rheumatoid factor present M06.9 Rheumatoid arthritis location: knee Rheumatoid factor presence: unspecified presence Laterality: right Other fpc (current) drug therapy Z79.899 Microcytic anemia D50.9
--- OUTSIDE RECORDS SUMMARY | 2025-08-02 09:07 | XMS_ITS | Clinical Summary ---
Author Organization [facility] [address] [place] [address] [place] [phone] Phone Care Team Providers Care Gummed Tape Press Operator Name Role Phone Unavailable Primary Care Provider [...] Last Done Comments Breast Cancer Screening 1978 Colorectal Cancer Screening: Colonoscopy 1978 Hepatitis B Vaccines (1 of 3 - 19+ 3-dose series) 1997 Cervical Cancer Screening: Pap Smear 1999 Pneumococcal Vaccine: Pediatrics (0 to 5 Years) and At-Risk Patients (6 to 49 Years) (2 of 2 - PCV) 09/18/2021 09/18/2020 Depression Screening 10/11/2024 Cholesterol Screening (Lipid Panel) 12/22/2024 HIV Screening 12/22/2024 Hepatitis C Screening 12/22/2024 Social Influencers of Health Screening 12/22/2024 Influenza Vaccine (#1) 2025 4, 06/23/2023, 06/26/2022, Additional history exists Hypertension/CHF/CAD Annual BMP Blood Test 02/15/2026 02/15/2025 DTaP,Tdap,and Td Vaccines (4 - Td or Tdap) 08/31/2034 08/31/2024, 07/29/2011, 03/12/2011 RSV Immunization Adult Patients (1 - 1-dose 75+ series) 2053 COVID-19 Vaccine Completed 07/21/2024, , 01/20/2022, Additional [...] Procedure Name Priority Date/Time Associated Diagnosis Comments COMPREHENSIVE METABOLIC PANEL Routine 02/15/2025 8:07 AM EDT Essential (primary) hypertension Disorder of lipoprotein and lipid metabolism Other abnormal glucose from Last 3 Months or Most Recently Relevant to Health Maintenance Results * Comprehensive metabolic panel (02/15/2025 8:07 AM EDT) Sodium 142 133 - 145 mmol/L LAB CHEMISTRY METHOD 02/15/2025 11:24 AM [facility] Potassium 4.6 3.5 - 5.5 mmol/L LAB CHEMISTRY METHOD 02/15/2025 11:24 AM [facility] Chloride 108 96 - 110 mmol/L LAB CHEMISTRY METHOD 02/15/2025 11:24 AM [facility] CO2 26 21 - 32 mmol/L LAB CHEMISTRY METHOD 02/15/2025 11:24 AM [facility] Anion Gap 8 3 - 11 LAB CHEMISTRY METHOD 02/15/2025 11:24 AM [facility] Glucose 96 70 - 100 mg/dL LAB CHEMISTRY METHOD 02/15/2025 11:24 AM [facility] BUN 17 5 - 25 mg/dL LAB CHEMISTRY METHOD 02/15/2025 11:24 AM [facility] Creatinine 0.74 0.50 - 1.10 mg/dL LAB CHEMISTRY METHOD 02/15/2025 11:24 AM [facility] eGFR 101 >=60 mL/min/1. 73m2 LAB CHEMISTRY METHOD 02/15/2025 11:24 AM [facility] Comment:Calculation based on the Chronic Kidney Disease Epidemiology Collaboration (CKD-EPI) equation refit without adjustment for race. BUN/Creatinine Ratio 23.0 LAB CHEMISTRY METHOD 02/15/2025 11:24 AM [facility] Calcium 9.5 8.5 - 10.5 mg/dL LAB CHEMISTRY METHOD 02/15/2025 11:24 AM [facility] AST (SGOT) 14 10 - 42 unit/L LAB CHEMISTRY METHOD 02/15/2025 11:24 AM [facility] ALT (SGPT) 19 10 - 60 unit/L LAB CHEMISTRY METHOD 02/15/2025 11:24 AM [facility] Alkaline Phosphatase 87 42 - 121 unit/L LAB CHEMISTRY METHOD 02/15/2025 11:24 AM [facility] Total Protein 6.6 6.0 - 8.0 g/dL LAB CHEMISTRY METHOD 02/15/2025 11:24 AM [facility] Albumin 3.7 3.2 - 5.0 g/dL LAB CHEMISTRY METHOD 02/15/2025 11:24 AM [facility] Total Bilirubin 0.3 0.0 - 1.4 mg/dL LAB CHEMISTRY METHOD 02/15/2025 11:24 AM [facility] Blood Venous blood specimen / Unknown Venipuncture / Unknown 02/15/2025 8:07 AM EDT 02/15/2025 8:07 AM EDT us Louis ALVAREZ LAB BLOOD ORDERABLES Final Result [facility] ([facility]) [facility] [address] [place] [address], [place] [phone] from Last 3 Months or Most Recently Relevant to Health Maintenance Insurance [employer]
--- OUTSIDE RECORDS SUMMARY | 2025-08-02 09:07 | XMS_ITS | Clinical Summary ---
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 Followed by [facility] (last seen 2006) Irritable bowel syndrome 06/24/2011 Overview (12/01/2014): Irritable bowel syndrome; diet controlled Uncoded H/O Abnormal Pap Smear 06/24/2011 Overview (12/01/2014): H/O Abnormal Pap Smear; 1999 (hpv) LEEP History of anxiety 06/24/2011 Overview (12/01/2014): H/O Anxiety; rx with ativan for insomnia in past anomaly 06/24/2011 Overview (12/01/2014): anomaly; [facility] in one twin/liver down at [address] Dr Meza ([facility]) declined karyotype Rheumatoid arthritis 06/24/2011 Overview (12/01/2014): Rheumatoid Arthritis; juvenille dx age 4 rx embrel, methotrexate and naproxen. Rheum Dr Domonique Lowery ([facility]). 3 arthroscopic surgeries to right knee History of asthma 06/24/2011 Overview (12/01/2014): H/O Asthma; exercised induced/rare inhaler Social History Tobacco Use Types Packs/Day Years Used Date Smoking Tobacco: Never Education Answer Date Recorded Are you interested in more education? Not on jonelle e 10/14/2023 Are you concerned about learning? Not on file 10/14/2023 No 10/14/2023 No 10/14/2023 Digital Access Answer Date Recorded No 10/14/2023 No 10/14/2023 Reliable internet access at home? Not on file 10/14/2023 Device with a working camera? Not on file Comments Unknown Sex and Gender Information Value Date Recorded Sex Assigned at Not on file Legal Sex Female 6:03 PM EST Gender Identity Not on file Sexual Orientation Not on file Last Filed Vital Signs Vital Sign Reading Time Taken Comments Blood Pressure 120/80 06/24/2011 9:17 AM EDT Pulse - - Temperature - - Respiratory Rate - - Oxygen Saturation - - Inhaled Oxygen Concentration - - Weight - - Height 160 cm (5' 3 ) 06/24/2011 12:00 AM EDT Body Mass Index - - Plan of Treatment Health Maintenance Due Date Last Done Comments Adult Td,Tdap Booster 1978 LIPID PANEL 1978 DEPRESSION SCREENING 1990 SMOKING Hx and SMOKELESS TOB ACCO SCREENING 1991 HEPATITIS C SCREENING 1996 HIV ONE-TIME SCREENING (18-6 5 YEARS) 1996 PAP SMEAR 1999 MAMMOGRAM 2018 COLOGUARD 2023 COLONOSCOPY 2023 COLORECTAL CANCER SCREENING 2023 FIT TEST 2023 FOBT 2023 SIGMOIDOSCOPY 2023 VIRTUAL COLONOSCOPY 2023 INFLUENZA VACCINE (#1) 2025 COVID-19 VACCINE (2024-2 6 season) 2025 HEPATITIS A VACCINES Aged Out No long er eligible based on patient's age to complete this topic HIB VACCINES Aged Out No longer eligi ble based on patient's age to complete this topic MENINGOCOCCAL VACCINES (ACWY) Aged Out No longer eligible based on patient's age to complete this topic MENINGOCOCCAL VACCINES (B) Aged Out N o longer eligible based on patient's age to complete this topic PNEUMOCOCCAL VACCINES (0-49 years) Aged Out No longer eligible based on patient's age to complete this topic Medical Devices Not on file Additional Source Comments The information contained in this document represents components of the legal health record. It is not the complete legal health record.[facility]
== END 2025-08-02 09:29 | disposition home or self-care (01) ==
LOC: HO.RHES 08:37
PROVIDERS: PCP Physician Assistant; Visit Provider Internal Medicine Rheumatology
DX: S93.402A Sprain of unspecified ligament of left ankle, initial encounter (principal); M06.9 Rheumatoid arthritis, unspecified; Z79.899 Other long term (current) drug therapy; D50.9 Iron deficiency anemia, unspecified
CPT/HCPCS: 99214; G2211

== ENCOUNTER 2025-09-04 08:00 | Outpatient (AMB) | payer OTHER, SELFPAY ==
--- NOTE | 2025-09-04 08:06 | A.OFFPC_ITS ---
Vital Signs 09/04/25 08:06 Height 5 ft 6 in Intake Visit Reasons: Annual Exam Account Development Specialist Required: No Accompanied by: Self / Same As Patient Allergies acetaminophen (From Percocet) Allergy (Unknown, Verified 09/04/25 08:07) vomitting amoxicillin Allergy (Unknown, Verified 09/04/25 08:07) hives hydrocodone (From Vicodin) Allergy (Unknown, Verified 09/04/25 08:07) hives Penicillins Allergy (Unknown, Verified 09/04/25 08:07) hives gemfibrozil Adverse Reaction (Intermediate, Verified 09/04/25 08:07) Palpitations oxycodone Adverse Reaction (Unknown, Verified 09/04/25 08:07) Vomiting Tobacco use date assessed: 09/04/25 Dental Screening Dental Screen Date: 09/04/25 Did you have a dental visit in the last 12 months?: Yes Did you have a dental problem in the last 6 months where you did not have access to dental care?: No [facility] Medical History COVID-19 virus infection Panic disorder GERD without esophagitis Surgical History History of total knee replacement History of surgery History of extraction of renal calculus History of laparoscopy History of section History of carpal tunnel release H/O right knee surgery History of tonsillectomy Family History Father Diabetes Sleep apnea Pulmonary fibrosis Mother Diabetes Obesity Osteoarthritis Hypercholesteremia Family/Other Substance use disorder Mental health disorder Social History Housing: House Alcohol intake: current Alcohol intake frequency: holidays/special occasions only Alcohol type: beer, wine and hard liquor Patient Tobacco Use Status: Never used Tobacco e-Cigarette/Vaping Use: Never Used Second Hand Smoke Exposure: No service: No Current occupational status: employed 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 1. Little interest or pleasure in doing things: not at all 2. Feeling down, depressed, or hopeless: not at all 3. Trouble falling or staying asleep, or sleeping too much: not at all 4. Feeling tired or having little energy: not at all 5. Poor appetite or overeating: not at all 6. Feeling bad about yourself - or that you are a failure or have let yourself or your family down: not at all 7. Trouble concentrating on things, such as reading the newspaper or watching television: not at all 8. Moving or speaking so slowly that other people could have noticed. Or the opposite - being so fidgety or restless that you have been moving around a lot more than usual: not at all 9. Thoughts that you would be better off or of hurting yourself in some way: not at all Total score: 0 Source: Developed by Drs. Parker Moran, Olive Fiore, Carmelo Simmons and colleagues, with an educational ashley from [employer]. Thrive Questionnaire Date Thrive assessed: 09/04/25 I am a: Patient What is your living situation today?: I have a steady place to live Within the past 12 months, did the food you bought not last and you didn't have the money to get more?: Never true Within the past 12 months, did you worry whether your food would run out before you got money to buy more?: Never true Do you have trouble paying for medicines?: No Do you have trouble getting transportation to medical appointments?: No Do you have trouble paying your heating and electricity bill?: No Do you have trouble taking care of your child, family member or friend?: No Do you have trouble with day-to-day activities such as bathing, preparing meals, shopping, managing finances, etc.?: No Are you currently unemployed and looking for a job?: No Are you interested in more education?: No Please select the resources that you would like help with: None Currently or been in a relationship where the following occur: No concerns reported THRIVE Score: 0 AUDIT C Alcohol Use Questionnaire (AUDIT-C) 1. How often do you have a drink containing alcohol?: Never 3. How often do you have six or more drinks on one occasion?: Never Total Score: 0 PATY-7 AMB Questionnaire PATY-7 Date PATY - 7 assessed: 09/04/25 Feeling nervous, anxious, or on edge: 0 = Not at all Not being able to stop or control worryin = Not at all Worrying too much about different things: 0 = Not at all Trouble relaxin = Not at all Being so restless that it is hard to sit still: 0 = Not at all Becoming easily annoyed or irritable: 0 = Not at all Source: Developed by Drs. Parker Moran, Olive Fiore, Carmelo Simmons and colleagues, with an educational ashley from [employer]. Physical exam (Primary Care) Tobacco/Smoking Status: Tobacco use Status Tobacco use date assessed 02/28/25 02/28/25 08:11 Patient Tobacco Use Status Never used Tobacco 02/28/25 08:11 e-Cigarette/Vaping Use Never Used 02/28/25 08:11 Thrive Assessment: Date of Thrive Assessment Date Thrive assessed 02/26/25 08/28/25 19:12 Currently or been in a relationship where the following occur: No concerns reported Coding
--- NOTE | 2025-09-04 08:06 | MHC.PC.OV ---
Vital Signs 09/04/25 08:06 09/04/25 08:07 Height 5 ft 6 in 5 ft 6 in Weight 257 lb 4 oz BMI 41.5 BP 110/64 Blood Pressure Location Lt brachial Position Sitting Pulse 80 Pulse Source Pulse Oximeter Temp 97.3 F Temp Source Temporal Artery Scan Pulse Oximetry (%) 92 Oxygen Delivery Method Room Air Intake Visit Reasons: Annual Exam Intake Note: Patient is here today for a physical. Art Sales Consultant Required: No Global Mobility Specialist: Not Required per policy Accompanied by: Self / Same As Patient Allergies acetaminophen (From Percocet) Allergy (Unknown, Verified 09/04/25 08:15) vomitting amoxicillin Allergy (Unknown, Verified 09/04/25 08:15) hives hydrocodone (From Vicodin) Allergy (Unknown, Verified 09/04/25 08:15) hives Penicillins Allergy (Unknown, Verified 09/04/25 08:15) hives gemfibrozil Adverse Reaction (Intermediate, Verified 09/04/25 08:15) Palpitations oxycodone Adverse Reaction (Unknown, Verified 09/04/25 08:15) Vomiting Medication List - Last Reconciled 09/04/25 by Louis Eller PA-C betamethasone dipropionate 0.05% 1 appl topical BID PRN cholecalciferol (vitamin D3) 50 mcg PO DAILY diclofenac sodium 1% 4 grams topical QID estradiol-norethindrone acet 0.05-0.14 mg/24 hr (CombiPatch) 1 patch transdermal 2XW fenofibrate 54 mg PO DAILY 90 days ferrous fumarate (Ferrocite) 324 mg PO DAILY folic acid 1 mg PO DAILY 90 days gabapentin 300 mg PO DAILY lisinopril 10 mg PO DAILY 90 days lorazepam 0.5 mg PO DAILY PRN 14 days methotrexate sodium 12.5 mg (5 x 2.5 mg) PO QWEEK 12 weeks omeprazole 20 mg PO QAM sertraline 50 mg PO DAILY Tobacco use date assessed: 09/04/25 Dental Screening Dental Screen Date: 02/28/25 HPI Annual Exam HPI Details Patient is a 45-year-old female here today for an annual physical . Patient has a past medical history significant for hypertension, hyperlipidemia, class 3 obesity, rheumatoid arthritis, anxiety. .. Lumbar disc disease: Patient recently got an MRI of her lumbar spine that did show evidence of lumbar disc disease, she had her MRI reviewed by neurosurgeon whom recommends pain management. .. Hyperparathyroidism: Has follow-up with [facility] and continues on vitamin-D supplementation. .. Hyperlipidemia: Does have high triglycerides, She continues on fenofibrate without side effect. Has been working on dietary modifications. . Anemia of Chronic disease: Have noted low hemoglobin and normal MCV over the past couple of years. Likely anemia of chronic disease. Will check her iron, ferritin ect.. She does not report any overt signs of bleeding though does have heavy menstruations from time to time though she is perimenopausal. She will start on iron supplementation a few times a week. .. Impaired glucose metabolism: Most recent A1c 6.0 of fasting blood sugar acceptable. Unfortunately has gained weight since last office visit. She plans changing her diet and physical activity. .. Rheumatoid arthritis: She has regained care with a load haul dump operator. Recent labs showing elevated CRP and SED Rate. She has been started on gabapentin which has been helpful for her pain as well. .. Hypertension: Blood pressure acceptable today in office. Continues on lisinopril 10 mg with good effect on her blood pressure. Colon cancer screening: DOne in February 2025- normal- Repeat 10 years . mammo: Done May 2024 normal - [facility] OFFICE NURSE: followed at OFFICE NURSE [facility] - Vaccines: Up-to-date with flu vaccine, COVID vaccine pneumonia vaccine, up-to-date with tetanus vaccine [facility] Medical History COVID-19 virus infection Panic disorder GERD without esophagitis Surgical History History of total knee replacement History of surgery History of extraction of renal calculus History of laparoscopy History of section History of carpal tunnel release H/O right knee surgery History of tonsillectomy Family History Father Diabetes Sleep apnea Pulmonary fibrosis Mother Diabetes Obesity Osteoarthritis Hypercholesteremia Family/Other Substance use disorder Mental health disorder Social History (Updated 09/04/25 @ 08:19 by Louis Eller PA-C) Housing: House Alcohol intake: current Alcohol intake frequency: holidays/special occasions only Alcohol type: beer, wine and hard liquor Patient Tobacco Use Status: Never used Tobacco e-Cigarette/Vaping Use: Never Used Second Hand Smoke Exposure: No service: No Current occupational status: employed 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 [employer] 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 occupational 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/hazards: No Cognitive needs: No Hearing needs: No Vision needs: Yes (Glasses) Questionnaire Thrive Questionnaire Date Thrive assessed: 02/26/25 I am a: Patient What is your living situation today?: I have a steady place to live Within the past 12 months, did the food you bought not last and you didn't have the money to get more?: Never true Within the past 12 months, did you worry whether your food would run out before you got money to buy more?: Never true Do you have trouble paying for medicines?: No Do you have trouble getting transportation to medical appointments?: No Do you have trouble paying your heating and electricity bill?: No Do you have trouble taking care of your child, family member or friend?: No Do you have trouble with day-to-day activities such as bathing, preparing meals, shopping, managing finances, etc.?: No Are you currently unemployed and looking for a job?: No Are you interested in more education?: No Please select the resources that you would like help with: None Currently or been in a relationship where the following occur: No concerns reported THRIVE Score: 0 PATY-7 AMB Questionnaire PATY-7 Date PATY - 7 assessed: 02/28/25 Source: Developed by Drs. Parker Moran, Olive Fiore, Carmelo Simmons and colleagues, with an educational ashley from [employer]. Review of Systems Const Denies body aches, Denies chills, Denies excessive sweating, Denies fatigue, Denies fever(s) and Denies headache(s) Eyes Denies blurry vision ENT Denies dysphagia, Denies vertigo, Denies dizziness, Denies headache(s), Denies hearing loss and Denies tinnitus Card Denies chest pain, Denies chest pain with activity, Denies syncope, Denies irregular heart rhythm and Denies dyspnea Resp Denies chest congestion, Denies cough, Denies hemoptysis, Denies dyspnea and Denies wheezing GI Denies abdominal pain, Denies melena, Denies hematochezia, Denies coffee ground emesis, Denies dysphagia, Denies diarrhea, Denies nausea and Denies vomiting Denies urinary frequency, Denies dysuria, Denies urinary hesitancy and Denies urinary urgency Musc Denies arthralgias, Denies limited range of motion, Denies muscle cramps and Denies muscle weakness Skin/Breast Denies rash and Denies skin ulcer Neuro Denies Abnormal speech present, Denies confusion, Denies vertigo, Denies dizziness, Denies syncope, Denies headache(s), Denies memory loss and Denies seizure-like activity Psych Denies anxiety, Denies confusion, Denies depression, Denies memory loss, Denies panic attacks and Denies paranoia Endo Denies excessive sweating, Denies fatigue, Denies flushing, Denies polydipsia and Denies polyuria Aller/Immun Denies wheezing Physical exam (Primary Care) Vital Signs: Last Vital Signs Temp 97.3 F 09/04/25 08:07 Pulse 80 09/04/25 08:07 BP 110/64 09/04/25 08:07 Pulse Ox 92 09/04/25 08:07 Oxygen Delivery Method Room Air 09/04/25 08:07 BMI result Body Mass Index 41.5 Tobacco/Smoking Status: Tobacco use Status Tobacco use date assessed 09/04/25 09/04/25 08:11 Patient Tobacco Use Status Never used Tobacco 09/04/25 08:11 e-Cigarette/Vaping Use Never Used 09/04/25 08:11 PHQ-9: PHQ-9 Score PHQ-9: Total score 0 09/04/25 08:08 Thrive Assessment: Date of Thrive Assessment Date Thrive assessed 02/26/25 09/04/25 08:11 Currently or been in a relationship where the following occur: No concerns reported Const General: cooperative, comfortable, no acute distress, alert and awake; No confusion Orientation/consciousness: oriented to person, oriented to place, patient oriented x3 and No confusion HENMT Head: Yes normocephalic Ears: external ears normal and TM's normal bilaterally Face and sinus: No sinus tenderness Mouth: Normal oral and palatal mucosa present and tongue normal Teeth and gingiva: dentition normal and gingiva normal Throat: Yes posterior oropharynx normal, Yes tonsils normal and Yes uvula midline Eyes Conjunctivae: conjunctivae normal Sclerae: sclerae normal Pupils: Equal, round and reactive pupils present EOM: EOMs intact bilaterally Direct Ophthalmoscopy: No no photophobia Neck Neck: Yes no lymphadenopathy, No tender and Yes no JVD Thyroid: Thyroid normal Carotids: no bruits Chest Chest palpation & inspection: no tenderness Resp Effort & Inspection: normal respiratory effort, no audible wheezes, not labored and no stridor Auscultation: no crackles, no rales, no rhonchi and no wheezes Cardio Jugular venous distension: no JVD Rate: regular rate, not bradycardic and not tachycardic Rhythm: regular rhythm Bruits: no carotid bruits Peripheral pulses: Peripheral pulses 2+ throughout GI Inspection: Yes normal to inspection, No abdominal wall ecchymosis and No visible herniation Palpation (GI): Soft to palpation, nontender, no guarding, not rigid and No hepatosplenomegaly present Auscultation: normoactive bowel sounds General: Yes no CVA tenderness Back/Spine/Pelvis Back: no CVA tenderness and No back tenderness Cervical Spine: cervical ROM normal Thoracic/Lumbar Spine: thoracic and lumbar spine normal to inspection, straight leg raise negative bilaterally, No thoraco-lumbar ROM limited and No lumbar spinal tenderness Skin Lesions: no lesions Rashes: no rashes Wounds: no wounds Neuro General: oriented to person, oriented to place, patient oriented x3, CN's II-XI intact bilaterally and No confusion Cranial nerves: Yes Equal, round and reactive pupils present and Yes Normal accommodation reflex present Cognition (Neuro): normal cognition Speech: No Abnormal speech present Gait exam (Neuro): Normal gait present Motor exam (neuro): 5/5 motor strength present throughout Extrem Right upper extremity: full ROM; no cyanosis Left upper extremity: full ROM; no cyanosis Right lower extremity: no edema Left lower extremity: no edema Psych Appearance: grossly normal Mental Status: mental status grossly normal Affect: normal affect Attitude: cooperative Thought process: Normal thought process present Coding Level of Care Code Est Pt Prev Care 40-64y(84509) Diagnoses Annual physical exam Z00.00 Anemia of chronic disease D63.8 Rheumatoid arthritis involving right knee, unspecified whether rheumatoid factor present M06.9 Rheumatoid arthritis location: knee Rheumatoid factor presence: unspecified presence Laterality: right Essential hypertension I10 Hypertension type: essential hypertension Impaired glucose metabolism R73.09 Lumbar radiculitis M54.16 Class 3 obesity E66.813 Assessment & Plan Assessment & Plan (1) Annual physical exam: Code(s): Z00.00 - Encounter for general adult medical examination without abnormal findings Category: Medical Plan: As per HPI (2) Anemia of chronic disease: Code(s): D63.8 - Anemia in other chronic diseases classified elsewhere Category: Medical Plan: Patient continues to low hemoglobin and normal MCV. Likely anemia of chronic disease. Will check her ferritin, iron and B12 folate levels. She will start on iron supplementation on a [id number] basis along with stool softener. (3) Rheumatoid arthritis: Comment: Inflammatory arthritis of right knee resolved after replacement 2023. ESR normalized on most recent labs. 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 Prior to R TKR, she had recurrent right knee cortisone injections and arthroscopic procedures before and after [facility]. She has not been on DMARD therapy for 2 years. She felt best when she was on enbrel and MTX 13 years ago for 2 years d/c due to fear of getting pulmonary fibrosis because her father was diagnosed with pulmonary fibrosis attributed to medications (amiodarone) and occupational exposure. She was on SSZ for 3 years. Monotherapy Leflunomide caused parathyroid hormone elevation. She failed naproxen, plaquenil (d/c after eye exam revealed loss of color pigment on exam). Celebrex initially caused heavy menstruation and prolonged bleeding with cuts but no issues when she used it after knee surgery. MTX 01/2025 for maintenance. CARTER negative. Elevated inflammatory markers December 2024 and February 2025. ESR normalized July 2025. Code(s): M06.9 - Rheumatoid arthritis, unspecified Category: Medical Qualifiers: Rheumatoid arthritis location: knee Rheumatoid factor presence: unspecified presence Laterality: right Qualified Code(s): M06.9 - Rheumatoid arthritis, unspecified Plan: Patient has a diagnosis of rheumatoid arthritis. She has establish care with a new load haul dump operator whom is doing workup. Still has joint pain thus she uses [id number]-[id number] analgesics at times. She would like to reestablish with a load haul dump operator for further evaluation and treatment. (4) HTN (hypertension): Code(s): I10 - Essential (primary) hypertension Category: Medical Qualifiers: Hypertension type: essential hypertension Qualified Code(s): I10 - Essential (primary) hypertension Plan: Patient's blood pressure acceptable today in office. Will continue her current dose of lisinopril with goal blood pressure to be below 140/90. (5) Impaired glucose metabolism: Code(s): R73.09 - Other abnormal glucose Category: Medical Plan: As per HPI patient's most recent fasting blood sugar stable, A1c at 6.0. She has been noted to have some weight gain as of late. She admits to some dietary indiscretion. . (6) Lumbar radiculitis: Code(s): M54.16 - Radiculopathy, lumbar region Category: Medical Plan: Lumbar spine MRI showing lumbar disc disease, she had followed up with surgeon whom recommends pain management.. (7) Class 3 obesity: Code(s): E66.813 - Obesity, class 3 Category: Medical Plan: Patient does understand her BMI is over 40 will work on being more physically active and adapting to better eating habits to reduce her weight. Orders: Orders IRON PROFILE Today D50.9 - Iron deficiency anemia, unspecified, D63.8 - Anemia in other chronic diseases classified elsewhere Vitamin B12 and Folate Today D63.8 - Anemia in other chronic diseases classified elsewhere, E53.8 - Deficiency of other specified B group vitamins Ferritin Today D63.8 - Anemia in other chronic diseases classified elsewhere Hemoglobin A1c Today R73.09 - Other abnormal glucose Lipid Panel Today E78.1 - Pure hyperglyceridemia Microalbumin, Random (w Creat) Today I10 - Essential (primary) hypertension Comprehensive [place]. Panel Fast Today I10 - Essential (primary) hypertension Complete Blood Count no Diff Today I10 - Essential (primary) hypertension Medications: Refilled lorazepam 0.5 mg PO DAILY PRN 14 tabs 1RF anxiety 14 days F41.0 - Panic disorder [episodic paroxysmal anxiety]
[2025-09-04 08:07] VITALS: BP 110/64; PULSE 80; TEMP 36.3; O2SAT 92; BMI 41.5
--- OUTSIDE RECORDS SUMMARY | 2025-09-04 08:12 | XMS_ITS | Clinical Summary ---
Author Organization [facility] [address] [place] [address] [place] [phone] Phone Care Team Providers Care Cnc Manager Name Role Phone Unavailable Primary Care Provider [...] 12/22/2024 Social Influencers of Health Screening 12/22/2024 COVID-19 Vaccine ( season) 2025 07/21/2024, 07/07/2023, 01/20/2022, Additional history exists Influenza Vaccine (#1) 2025 , 06/23/2023, 06/26/2022, Additional history exists Hypertension/CHF/CAD Annual BMP Blood Test 02/15/2026 02/15/2025 DTaP,Tdap,and Td Vaccines (4 - Td or Tdap) 08/31/2034 08/31/2024, 07/29/2011, 03/12/2011 RSV Immunization Adult Patients (1 - 1-dose 75+ series) 2053 HIB Vaccines Aged Out No longer eligi [...] mmol/L LAB CHEMISTRY METHOD 02/15/2025 11:24 AM [facility] Potassium 4.6 3.5 - 5.5 mmol/L LAB CHEMISTRY METHOD 02/15/2025 11:24 AM [facility] Chloride 108 96 - 110 mmol/L LAB CHEMISTRY METHOD 02/15/2025 11:24 AM [facility] CO2 26 21 - 32 mmol/L LAB CHEMISTRY METHOD 02/15/2025 11:24 AM [facility] Anion Gap 8 3 - 11 LAB CHEMISTRY METHOD 02/15/2025 11:24 AM [facility] Glucose 96 70 - 100 mg/dL LAB CHEMISTRY METHOD 02/15/2025 11:24 AM [facility] BUN 17 5 - 25 mg/dL LAB CHEMISTRY METHOD 02/15/2025 11:24 AM [facility] Creatinine 0.74 0.50 - 1.10 mg/dL LAB CHEMISTRY METHOD 02/15/2025 11:24 AM [facility] eGFR 101 >=60 mL/min/1. 73m2 LAB CHEMISTRY METHOD 02/15/2025 11:24 AM [facility] Comment:Calculation based on the Chronic Kidney Disease Epidemiology Collaboration (CKD-EPI) equation refit without adjustment for race. BUN/Creatinine Ratio 23.0 LAB CHEMISTRY METHOD 02/15/2025 11:24 AM [facility] Calcium 9.5 8.5 - 10.5 mg/dL LAB CHEMISTRY METHOD 02/15/2025 11:24 AM [facility] AST (SGOT) 14 10 - 42 unit/L LAB CHEMISTRY METHOD 02/15/2025 11:24 AM [facility] ALT (SGPT) 19 10 - 60 unit/L LAB CHEMISTRY METHOD 02/15/2025 11:24 AM [facility] Alkaline Phosphatase 87 42 - 121 unit/L LAB CHEMISTRY METHOD 02/15/2025 11:24 AM [facility] Total Protein 6.6 6.0 - 8.0 g/dL LAB CHEMISTRY METHOD 02/15/2025 11:24 AM [facility] Albumin 3.7 3.2 - 5.0 g/dL LAB CHEMISTRY METHOD 02/15/2025 11:24 AM [facility] Total Bilirubin 0.3 0.0 - 1.4 mg/dL LAB CHEMISTRY METHOD 02/15/2025 11:24 AM [facility] Blood Venous blood specimen / Unknown Venipuncture / Unknown 02/15/2025 8:07 AM EDT 02/15/2025 8:07 AM EDT us Louis ALVAREZ LAB BLOOD ORDERABLES Final Result [facility] [address] [place] [address], from Last 3 Months or Most Recently Relevant to Health Maintenance Insurance [employer]
--- OUTSIDE RECORDS SUMMARY | 2025-09-04 08:13 | XMS_ITS | Clinical Summary ---
Author Organization [facility] Address [address] [place] [phone] Phone Care Team Providers Care Package Center Supervisor Name Role Phone Unavailable Primary Care Provider [...] 2006, 4 identified on u/s. 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 Rheum Dr Domonique Lowery ([facility]). 3 arthroscopic surgeries to right knee History [...] patient's age to complete this topic IPV VACCINES Aged Out No longer eligi ble [...] It is not the complete legal health record.[facility]
== END 2025-09-04 08:33 | disposition home or self-care (01) ==
LOC: HO.HMCH 08:01
PROVIDERS: PCP Physician Assistant; Visit Provider Physician Assistant
DX: Z00.00 Encounter for general adult medical examination without abnormal findings (principal); M06.9 Rheumatoid arthritis, unspecified; E66.813 Obesity, class 3; Z68.41 Body mass index [BMI] 40.0-44.9, adult; D63.8 Anemia in other chronic diseases classified elsewhere; I10 Essential (primary) hypertension; R73.09 Other abnormal glucose; M54.16 Radiculopathy, lumbar region